=== PATIENT | male | born 1960 | race Caucasian/White ===

== ENCOUNTER 2021-07-28 07:13 | Day surgery (SDC) | payer OTHER, SELFPAY ==
--- NOTE | 2021-07-27 11:04 | HO.ANESPROP2 ---
Documented by User: Cher oWo NP 07/27/21 11:04 HPI - Anesthesia Eval Consult details Narrative: 60yo M for Colonoscopy [facility] Past Medical History Medical History (Updated 07/27/21 @ 10:21 by Vita Valles) Hypercholesteremia Hypertension Obstructive sleep apnea Type 2 diabetes mellitus Surgical History Surgical History (Updated 07/28/21 @ 07:52 by Meg Mayorga, RN) History of penile implant History of repair of anterior cruciate ligament of left knee History of tonsillectomy History of total left knee replacement History of total right knee replacement Social History Social History Tobacco use type: Cigarette Advance Directives: No Advance Directives Information Provided: Yes Meds Allergies Allergy/AdvReac Type Severity Reaction Status Date / Time PCN Allergy Unknown hives Uncoded 01/23/18 00:00 Home Medications Medication Instructions Recorded Confirmed Last Taken Type atorvastatin 20 mg tablet 1 tab PO ONCE 07/27/21 07/27/21 Unknown History glipizide 5 mg tablet 1 tab PO BID 07/27/21 07/27/21 Unknown History hydrochlorothiazide 25 mg tablet 1 tab PO BID 07/27/21 07/27/21 Unknown History lisinopril 20 mg tablet 1 tab PO DAILY 07/27/21 07/27/21 07/28/21 History metformin 500 mg tablet 2 tab PO 07/27/21 07/27/21 Unknown History metoprolol succinate 100 mg 1 tab PO DAILY 07/27/21 07/27/21 07/28/21 History tablet,extended release 24 hr Exam Exam Date and Time: July 27, 2021 1104 Assessment and Plan Assessment Anesthesia Assessment: Chart Reviewed Documented by User: Phuong Orlando MD 07/28/21 08:57 [facility] Active Problems Active Problems: Obesity Past Medical History Medical History (Updated 07/27/21 @ 10:21 by Vita Valles) Hypercholesteremia Hypertension Obstructive sleep apnea Type 2 diabetes mellitus Family History Family history of problems with anesthesia: No Surgical History Surgical History (Updated 07/28/21 @ 07:52 by Meg Mayorga RN) History of penile implant History of repair of anterior cruciate ligament of left knee History of tonsillectomy History of total left knee replacement History of total right knee replacement History of Problems with Anesthesia: No Social History Social History Tobacco use type: Cigarette Advance Directives: No Advance Directives Information Provided: Yes Meds Allergies Allergy/AdvReac Type Severity Reaction Status Date / Time PCN Allergy Unknown hives Uncoded 01/23/18 00:00 Home Medications Medication Instructions Recorded Confirmed Last Taken Type atorvastatin 20 mg tablet 1 tab PO ONCE 07/27/21 07/27/21 Unknown History glipizide 5 mg tablet 1 tab PO BID 07/27/21 07/27/21 Unknown History hydrochlorothiazide 25 mg tablet 1 tab PO BID 07/27/21 07/27/21 Unknown History lisinopril 20 mg tablet 1 tab PO DAILY 07/27/21 07/27/21 07/28/21 History metformin 500 mg tablet 2 tab PO 07/27/21 07/27/21 Unknown History metoprolol succinate 100 mg 1 tab PO DAILY 07/27/21 07/27/21 07/28/21 History tablet,extended release 24 hr Exam Height,Weight and Vital Signs: Height 6 ft 2 in Weight 146.964 kg Vital Signs Temp Pulse Resp BP Pulse Ox 97 F 54 18 119/71 96 07/28/21 07:33 07/28/21 07:33 07/28/21 07:33 07/28/21 07:33 07/28/21 07:33 Airway Mallampati Class: II TM Dist: >3cm Neck ROM: Full Loose/Missing/Broken Teeth: Yes (Dental extractions) Heart: RRR Lungs: CTAB Assessment and Plan Assessment Anesthesia Assessment: Anesthesia Plan Discussed Final Anesthetic Review Family History of Problems with Anesthesia: No History of Problems with Anesthesia: No NPO: Yes ASA Class: III Final Preanesthetic Review: No Changes in Pt Med Stat, Meds/Allgs Chart Reviewed, Consent Obtained/Reviewed and Anes Risks/Benef Reviewed Patient Risk: Intermediate Procedure Risk: Low Assessment/Block/Sedation in SS: Assess/Block/Sedation-SS Anesthetic Plan Anesthetic Plan: MAC: Disposition: Standard PACU
[2021-07-28 07:33] VITALS: BP 119/71; PULSE 54; RESP 18; TEMP 36.1; O2SAT 96; BMI 41.5
[2021-07-28] MEDS: Lactated Ringers 1,000 ML 100 ML IVCONT (07:49)
[2021-07-28 07:55] LABS: Glucose, Whole Blood 104 mg/dL (60-115)
--- NOTE | 2021-07-28 08:04 | MHC.SHP ---
Pre-Procedural Eval Section A Date of Service: 07/28/21 Section B Chief Complaint: screening,hx of malignant neoplasm Details of Present Illness: see H&P no changes Relevant Family History (Specify if Yes): No Relevant Social History: None Present Medications: see Short Stay Collaborative assessment Medical History: No relevant PMH History of Previous Operations: No relevant previous surgery Allergies: Allergies Allergy/AdvReac Type Severity Reaction Status Date / Time PCN Allergy Unknown hives Uncoded 01/23/18 00:00 Review of Systems Sugical H&P ROS: Negative: Constitution, Cardiovascular, Respiratory, Neurological, Psychiatric, Hem-Onc, Allergic/Immunologic, Gastrointestinal, Genitourinary, Musculoskeletal, Integumentary, Endocrine and Eyes/Ears/Nose/Throat Exam Surgical H&P Exam: Normal: HEENT, Normal: Heart, Normal: Lungs, Normal: Extremities, Normal: Abdomen, Normal: Skin and Normal: Neurological Plan I have reviewed the history and physical and performed a pertinent physical examination on my patient. No changes have occurred unless specified.
--- NOTE | 2021-07-28 08:47 | P.BOP_ITS ---
Brief Operative Note Date of Service: 07/28/21 Pre-op diagnosis: screening Post-op diagnosis: same Procedure: colonoscopy Surgeon: Eloy Pena Anesthesia: MAC Was an Cash Posting Specialist used for this Procedure?: No Estimated blood loss (mL): 0 Pathology: none sent Condition: stable Disposition: PACU
[2021-07-28 08:54] VITALS: BP 108/54; PULSE 64; RESP 16; TEMP 36.4; O2SAT 94
[2021-07-28 09:09] VITALS: BP 120/69; PULSE 56; RESP 16; TEMP 36.4; O2SAT 97
--- NOTE | 2021-07-28 09:41 | OP_ITS ---
SURGEON: Eloy Pena MD INDICATIONS: Colon cancer screening and family history of colon cancer. PREOPERATIVE DIAGNOSIS: POSTOPERATIVE DIAGNOSIS: PROCEDURE PERFORMED: Colonoscopy to the terminal ileum. ESTIMATED BLOOD LOSS: COMPLICATIONS: ANESTHESIA: Medications, monitored anesthesia care. ASSISTANTS: SPECIMENS: DESCRIPTION OF PROCEDURE: A history and physical was performed. The risks and benefits of the procedure were explained to the patient. Informed consent was obtained. The patient was placed in the left lateral decubitus position. A digital rectal exam was performed and was found to be normal. The Olympus pediatric video colonoscope was introduced into the rectum and advanced to the cecum without difficulty. The cecum was identified by transillumination, palpation, and identification of the ileocecal valve. Examination was performed, and the scope was removed. He tolerated the procedure well, returned to the recovery area in stable condition. FINDINGS: The terminal ileum was briefly examined and appeared normal. The visualized colonic mucosa was normal. The quality of the prep was good. There was mild sigmoid diverticulosis. Retroflexed examination was normal. IMPRESSION: Normal colonoscopy. RECOMMENDATION: 1. Follow up as needed. 2. Repeat colonoscopy is recommended in 5 years because of family history. MD RYAN Pulido/MARY / [id number]
== END 2021-07-28 09:10 | disposition home or self-care (01) ==
PROVIDERS: PCP Internal Medicine; Visit Provider Internal Medicine Gastroenterology
PROC: 0DJD8ZZ Inspection of Lower Intestinal Tract, Via Natural or Artificial Opening Endoscopic (ICD-10-PCS; CPT 45378; principal; 2021-07-28 08:20)
DX: Z12.11 Encounter for screening for malignant neoplasm of colon (principal); Z80.0 Family history of malignant neoplasm of digestive organs; K57.30 Diverticulosis of large intestine without perforation or abscess without bleeding; K59.4 Anal spasm; E78.00 Pure hypercholesterolemia, unspecified; I10 Essential (primary) hypertension; G47.33 Obstructive sleep apnea (adult) (pediatric); E11.9 Type 2 diabetes mellitus without complications; Z79.84 Long term (current) use of oral hypoglycemic drugs; Z79.899 Other long term (current) drug therapy; Z88.0 Allergy status to penicillin; Z96.653 Presence of artificial knee joint, bilateral
CPT/HCPCS: G0105; 82947

== ENCOUNTER 2022-09-29 08:08 | Outpatient (REF) | payer OTHER, SELFPAY ==
--- NOTE | ~2022-09-29 | US_ITS ---
EXAMINATION: US THYROID CLINICAL INFORMATION: Thyroid nodules. COMPARISON: None available. TECHNIQUE: Linear transducer grayscale and color Doppler examination with attention to the region of the thyroid. FINDINGS: SIZE: Measurements of the thyroid lobes and nodules are given in sagittal, anteroposterior and transverse dimensions respectively. Right Thyroid Lobe: 4.4 x 1.8 x 2.0 cm, volume 8.0 mL. Parenchyma: The gland echotexture is homogeneous. Thyroid vascularity is normal. Left Thyroid Lobe: 4.9 x 1.5 x 2.0 cm, volume 7.6 mL. Parenchyma: The gland echotexture is homogeneous. Thyroid vascularity is normal. Isthmus: 0.5 cm in maximum AP dimension. No focal thyroid nodule is seen. NODES: No lymphadenopathy is seen in the tissue surrounding the thyroid gland. US/US thyroid IMPRESSION: Unremarkable thyroid ultrasound. ACR TI-RADS RECOMMENDATION REFERENCE: Ultrasound-guided fine-needle aspiration, followup ultrasound, no further follow up. * TR1 (0 point) and TR2 (2 points): No FNA or follow up. * TR3 (3 points): FNA if more than or equal to 2.5 cm in maximum dimension, followup ultrasound in 1, 3 and 5 years if 1.5 to 2.4 cm in maximum dimension. * TR4 (4-6 points): FNA if more than or equal to 1.5 cm in maximum dimension, followup ultrasound in 1, 2, 3 and 5 years if 1 to 1.4 cm in maximum dimension. * TR5 (more than or equal to 7 points): FNA if more than or equal to 1 cm in maximum dimension, followup ultrasound every year for 5 years if 0.5 to 0.9 cm in maximum dimension. * TR3, TR4 or TR5 nodules that are below the size threshold for followup receive no follow up.
== END 2022-09-29 08:09 | disposition home or self-care (01) ==
LOC: HO.US 08:08
PROVIDERS: PCP Internal Medicine; Visit Provider Internal Medicine
DX: E04.1 Nontoxic single thyroid nodule (principal)
CPT/HCPCS: 76536

== ENCOUNTER 2023-03-11 08:15 | Outpatient (REF) | payer OTHER, SELFPAY ==
[2023-03-11 14:21] LABS: MANUAL DIFF FLAG NO
[2023-03-11 14:25] LABS: Basophils Absolute Auto 0.2 X10*3/uL (0.0-0.2); Basophils Percent Auto 1.4 % (0-2); Eosinophils Absolute Auto 0.5 X10*3/uL (0.0-0.4); Eosinophils Percent Auto 4.6 % (0-4); Hematocrit 41.4 % (42.0-52.0); Hemoglobin 13.5 g/dl (14.0-18.0); Imm Gran Abs Auto 0.06 X10*3/uL (0.00-0.03); Imm Gran Pct Auto 0.5 % (0.0-0.4); Lymphocytes Absolute Auto 2.4 X10*3/uL (1.2-4.9); Lymphocytes Percent Auto 21.7 % (20-40); Mean Corpuscular HGB Conc 32.6 g/dl (31.0-36.0); Mean Corpuscular Hemoglobin 30.1 pg (27.0-33.0); Mean Corpuscular Volume 92.2 fL (80.0-98.0); Mean Platelet Volume 11.4 fL (9.4-12.4); Monocytes Absolute Auto 0.8 X10*3/uL (0.1-1.2); Monocytes Percent Auto 7.2 % (2-11); Neutrophils Percent Auto 64.6 % (45-73); Platelet Count 289 X10*3/uL (160-400); Red Blood Count 4.49 X10*6/uL (4.60-5.80); Red Cell Distribution Width 13.7 % (11.0-16.0); White Blood Count 10.9 X10*3/uL (4.8-10.8)
[2023-03-11 14:40] LABS: Alanine Aminotransferase 34 U/L (0-40); Albumin Level 4.4 g/dL (3.5-5.0); Alkaline Phosphatase 64 U/L (39-117); Anion Gap 20 (12-20); Aspartate Amino Transferase 27 U/L (5-37); Blood Urea Nitrogen 31 mg/dL (9-16); Carbon Dioxide 26 mmol/L (22-29); Chloride 99 mmol/L (96-108); Cholesterol 122 mg/dL (<200); Estimated Glomerular Filt Rate 45; Glucose Fasting 100 mg/dL (60-99); HDL Cholesterol 32 mg/dL (>40); LDL Cholesterol Calculated 61 mg/dL (<100); Potassium 3.7 mmol/L (3.3-5.1); Sodium 141 mmol/L (135-145); Total Protein 7.6 g/dL (6.5-8.0); Triglycerides 145 mg/dL (<150)
[2023-03-11 15:31] LABS: Estimated Average Glucose 108 mg/dL; Hemoglobin A1c % 5.4 % (<6.0)
== END 2023-03-11 08:16 | disposition home or self-care (01) ==
LOC: HO.CHCLDS 08:15
PROVIDERS: Visit Provider Internal Medicine
DX: E11.9 Type 2 diabetes mellitus without complications (principal)
CPT/HCPCS: 36415; 80053; 80061; 83036; 85025

== ENCOUNTER 2023-03-14 09:12 | Outpatient (REF) | payer OTHER, SELFPAY ==
[2023-03-14 15:14] LABS: Creatinine Urine 122.46 mg/dL; Microalbumin Urine < 5.0 mg/L
== END 2023-03-14 09:13 | disposition home or self-care (01) ==
LOC: HO.CHCLDS 09:12
PROVIDERS: Visit Provider Internal Medicine
DX: E11.9 Type 2 diabetes mellitus without complications (principal)
CPT/HCPCS: 82043; 82570

== ENCOUNTER 2023-03-25 08:22 | Outpatient (REF) | payer OTHER, SELFPAY ==
[2023-03-25 09:50] LABS: Anion Gap 16 (12-20); Blood Urea Nitrogen 18 mg/dL (9-16); Calcium 9.7 mg/dL (8.4-10.2); Carbon Dioxide 23 mmol/L (22-29); Chloride 109 mmol/L (96-108); Estimated Glomerular Filt Rate > 60; Glucose Fasting 95 mg/dL (60-99); Iron 56 mcg/dL (45-160); Percent Iron Saturation 25 % (15-50); Potassium 4.7 mmol/L (3.3-5.1); Sodium 143 mmol/L (135-145); Total Iron Binding Capacity 225 mcg/dL (228-428); Unsaturated Iron Binding 169 ug/dL
[2023-03-25 10:02] LABS: Vitamin D 25-OH Total 35.3 ng/mL (>30)
[2023-03-28 13:29] LABS: Calcium (PTHI) 9.2 mg/dL (8.6-10.3); PTHI 54 pg/mL (16-77)
[2023-03-29 12:49] LABS: VITAMIN D (1,25 OH) D3 37 pg/mL; Vit D (1,25-Dihydroxy) Total 37 pg/mL (18-72); Vitamin D (1,25 OH) D2 <8 pg/mL
[2023-04-01 18:09] LABS: Parathyroid Hormone Related Pr 15 pg/mL (11-20)
== END 2023-03-25 08:23 | disposition home or self-care (01) ==
LOC: HO.CHCLDS 08:22
PROVIDERS: Visit Provider Internal Medicine
DX: E83.52 Hypercalcemia (principal); D64.9 Anemia, unspecified; R79.89 Other specified abnormal findings of blood chemistry; E11.69 Type 2 diabetes mellitus with other specified complication; R60.0 Localized edema; Z96.60 Presence of unspecified orthopedic joint implant
CPT/HCPCS: 36415; 80048; 82306; 82652; 83519; 83540; 83970

== ENCOUNTER 2023-05-23 10:07 | Outpatient (REF) | payer OTHER, SELFPAY ==
[2023-05-23 14:56] LABS: Prostate Specific Antigen 1.14 ng/mL (<0.05-4.0)
== END 2023-05-23 10:08 | disposition home or self-care (01) ==
LOC: HO.CHCLDS 10:07
PROVIDERS: Visit Provider Internal Medicine
DX: R35.1 Nocturia (principal); Z12.5 Encounter for screening for malignant neoplasm of prostate
CPT/HCPCS: 36415; 84153

== ENCOUNTER 2023-05-24 08:09 | Outpatient (REF) | payer OTHER, SELFPAY | END 2023-05-24 08:10 | disposition home or self-care (01) | LOC: HO.CHCLNP 08:09 | PROVIDERS: Visit Provider Internal Medicine | DX: R14.0 Abdominal distension (gaseous) (principal) | CPT/HCPCS: 87338 ==

== ENCOUNTER 2023-06-21 08:14 | Outpatient (AMB) | payer OTHER, SELFPAY ==
--- NOTE | 2023-06-21 08:25 | A.OFFVIS_ITS ---
Intake Vital Signs 06/21/23 08:26 Height 6 ft 3 in Weight 313 lb 0.902 oz BMI 39.1 BP 136/80 Blood Pressure Location Lt brachial Position Sitting Pulse 54 Intake Visit Reasons: NPV/BLE edema/HHC/Cole English Intake Note: NPV w/ EKG Aligning Inspector Required: No Accompanied by: Self / Same As Patient Allergies PCN Allergy (Unknown, Uncoded 06/21/23 08:26) hives Medication List - Last Reconciled 06/21/23 by Vidal Damico MD albuterol sulfate 90 mcg/actuation (Ventolin HFA) 2 inhalations inhalation DAILY atorvastatin 20 mg PO ONCE glipizide 5 mg PO BID lisinopril 40 mg PO DAILY metformin 1,000 mg PO BID metoprolol succinate ER 100 mg PO DAILY HPI HPI Comments History of Present Illness Details Michael is here for consultation regarding leg swelling and shortness of breath. He does not have any history of cardiac issues. No history of any coronary disease or myocardial infarction or cardiomyopathy or in fact any other cardiac concerns in the past. Multiple risk factors including obesity, diabete s, hypertension, dyslipidemia. He states he was diagnosed with SOPHY but does not seem to be on CPAP. He states that over the last few months, he has been noticing shortness of breath with activity. Twinges of momentary pain lasting for couple seconds in the left axillary region. He also gets some swelling in his ankle area/feet. Hence referred for further evaluation. [facility] Medical History (Updated 06/21/23 @ 08:42 by Vidal Damico MD) Obstructive sleep apnea Hypercholesteremia Hypertension Type 2 diabetes mellitus Surgical History History of penile implant History of tonsillectomy History of total right knee replacement History of total left knee replacement History of repair of anterior cruciate ligament of left knee Family History (Updated 06/21/23 @ 08:29 by Margaret Garner) Mother No problems noted. Father No problems noted. Social History (Updated 06/21/23 @ 08:29 by Margaret Garner) Alcohol intake: former Year quit: 2022 Patient Tobacco Use Status: Former Tobacco user Quit Date: 2022 Tobacco use type: Cigarette Review of Systems Const All systems reviewed & are unremarkable except as noted in HPI and below Reports as per HPI and Reports no additional complaints Eyes Reports as per HPI and Denies no additional complaints ENT Denies no additional complaints and Reports as per HPI Card Reports as per HPI, Reports no additional complaints, Denies acrocyanosis, Denies chest pain, Denies leg edema, Denies lightheadedness, Denies palpitations and Denies dyspnea Resp Reports as per HPI, Denies no additional complaints and Denies dyspnea GI Reports as per HPI and Denies no additional complaints Reports no additional complaints and Reports as per HPI Musc Reports no additional complaints and Reports as per HPI Skin/Breast Reports system reviewed and no additional complaints, except as documented Neuro Reports no additional complaints and Reports as per HPI Psych Reports no additional complaints and Reports as per HPI Endo Reports no additional complaints, Reports as per HPI and Denies palpitations Jcarlos/Lymph Reports no additional complaints and Reports as per HPI Aller/Immun Reports no additional complaints and Reports as per HPI Physical Exam Vital Signs: Last Vital Signs Pulse 54 06/21/23 08:26 BP 136/80 06/21/23 08:26 BMI result Body Mass Index 39.1 Const General: comfortable and no acute distress Orientation/consciousness: patient oriented x3 HEENT Other: Unremarkable Head: Yes normal to inspection Neck Neck: Yes normal visual inspection Chest Chest palpation & inspection: normal inspection of the chest Resp Auscultation: clear to auscultation bilaterally Cardio Palpation: normal PMI Heart sounds: S1 normal heart sound present, S2 normal heart sound present, no gallops, no murmurs and no rubs GI Palpation (GI): Soft to palpation Back/Spine/Pelvis Other: unremarkable Skin General skin exam: no rashes or lesions noted Neuro General: patient oriented x3 Extrem General: Yes normal to inspection Psych Mental Status: mental status grossly normal Office Procedures EKG Details: EKG with sinus bradycardia 54/Min; no significant ST-T changes and otherwise [place]remark[place] [id number], Complete Assessment & Plan Assessment & Plan (1) Leg swelling: Code(s): M79.89 - Other specified soft tissue disorders (2) SOB (shortness of breath): Code(s): R06.02 - Shortness of breath Plan Shortness of breath, leg swelling, multiple risk factors including SOPHY. We will plan on getting an echocardiogram and coronary CTA for further evaluation. Labs including cardiac BNP. Once these are completed and reviewed, we can see him back in follow-up and plan further care. Orders: Orders CA echo transthoracic complete Today M79.89 - Other specified soft tissue disorders, R06.02 - Shortness of breath CT Cardiac Coronary Angio Today I25.10 - Atherosclerotic heart disease of [place] coronary artery without angina pectoris Basic Metabolic Panel Today R06.02 - Shortness of breath B Type Natriuretic Peptide Today R06.02 - Shortness of breath Coding Level of Care Code New Pt Level 4 (47936) Diagnoses Leg swelling M79.89 SOB (shortness of breath) R06.02 CPT Codes EKG - CPT: 90097-[id number], Complete ([id number])
[2023-06-21 08:26] VITALS: BP 136/80; PULSE 54; BMI 39.1
== END 2023-06-21 08:57 | disposition home or self-care (01) ==
PROVIDERS: PCP Internal Medicine; Visit Provider Internal Medicine
DX: M79.89 Other specified soft tissue disorders (principal); R06.02 Shortness of breath
CPT/HCPCS: 93010; 99204

== ENCOUNTER → 2023-06-21 08:14 | Outpatient (BNVA) | payer OTHER, SELFPAY | PROVIDERS: PCP Internal Medicine; Visit Provider Internal Medicine | DX: M79.89 Other specified soft tissue disorders (principal); R06.02 Shortness of breath | CPT/HCPCS: 93005; 99202 ==

== ENCOUNTER → 2023-07-13 07:48 | Outpatient (REF) | payer OTHER, SELFPAY ==
--- NOTE | 2023-07-13 07:54 | CA_ITS ---
Transthoracic Echocardiogram Patient (Last, First, Middle): Michael Verde, Gender: Male Date of : 1960 Age: 62 Procedure Date: 07/13/2023 Procedure Type: Transthoracic Echocardiogram Location: OP Height: 190.5 cm Weight: 131.54 kg BSA: 2.57 m2 Heart Rate: bpm BP: 110 / 70 mmHg Human Development Professor: TO Referring MD: Vidal Damico MD [id number] Android Developer: Nando Jenkins MD Symptoms: M79.89 - Other specified soft tissue disorders Study Quality: Adequate/contrast ECG Rhythm: Sinus Conclusions: - 1. Normal LV ejection fraction at 60 65% with mild LVH and pseudonormal filling pattern 2. Normal cardiac valvular Dopplers 3. Mildly dilated ascending aorta at 3.9 cm 4. No gross pericardial effusion Findings Procedure Information Contrast agent, definity, is being given per protocol without apparent complications. Left Ventricle Normal left ventricular size and systolic function. There is mildly increased left ventricular wall thickness. The visually estimated ejection fraction is between 60-65%. Spectral Doppler is indicative of a pseudonormal filling pattern. E/E prime ratio is between 8 and 15 consistent with indeterminate filling pressures. Peak GLS is -19.5%, within normal limits. Right Ventricle Normal right ventricular cavity size and systolic function. Atria The left atrium is likely dilated. There is no evidence of interatrial shunt. The right atrium is normal in size. Aortic Valve Normal aortic valve structure and function. There is no aortic valve stenosis. There is no aortic valve regurgitation. Mitral Valve Normal mitral valve structure and function. There is trace mitral valve regurgitation. There is no mitral valve stenosis. Pulmonic Valve The pulmonic valve is likely normal. Tricuspid Valve Normal tricuspid valve structure. There is trace tricuspid valve regurgitation. The right ventricular systolic pressure is normal. The right ventricular systolic pressure is 23 mmHg. Normal right atrial pressure. There is no evidence of pulmonary hypertension. Great Vessels The pulmonary artery was not well visualized. There is mild dilatation of the ascending aorta measuring 3.90 cm. Venous The inferior vena cava is normal in size and collapses greater than 50% with inspiration. Pericardium/Pleural There is no evidence of pericardial effusion. Prior Study Comparison No prior study available for comparison. delay in reporting due to technical issues Measurements 2D Linear Measurements IVSd: 1.20 0.6-0.9/0.6-1.0 cm LVIDd: 4.62 3.9-5.3/4.2-5.9 cm LVIDd Index: 1.80 2.4-3.2/2.2-3.1 cm/m2 LVIDs: 3.17 2.0-3.6 cm LVPWd: 1.23 0.7-1.1 cm LA Diam: 4.10 2.7-3.8/3.0-4.0 cm LAIDs Index: 1.60 1.5-2.3 cm/m2 LV Mass: 266.54 67-162/88-224 g LV Mass Index: 103.71 43-95/49-115 g/m2 LVOT Diam: 2.40 3.0+(-)1.3 cm 2D Systolic Function EF 4C: 61.90 >55% EF 2C: 60.90 >55% EF BiP: 62.00 >55% Mitral Valve MV Pk E: 0.78 MV PK A: 0.68 MV Decel Time: 391.00 E/A: 1.10 E'Lateral: 6.20 E'Medial: 5.55 E/E' Med: 14.10 E/E' Lat: 12.60 PHT: 114.00 MVA PHT: 1.93 Decel Todd: 2.00 Aortic Valve AoV Pk Sanjeev: 1.45 AoV Mn Sanjeev: 0.99 AoV VTI: 0.36 AoV Pk Grad: 8.00 Aov Mn Grad: 4.00 MIR Cont.VTI: 3.67 LVOT LVOT Pk Sanjeev: 1.07 LVOT Mn Sanjeev: 0.72 LVOT VTI: 0.29 LVOT Pk Grad: 5.00 LVOT Mn Grad: 2.00 LVOT Diam: 2.40 LVOT Area: 4.52 Diastolic Function MV Pk E: 0.78 MV Pk A: 0.68 E/A: 1.10 E'Medial: 5.55 E/E' Med: 14.10 E' Laterial: 6.20 E/E' Lat: 12.60 Right Ventricle TAPSE (mm): 25.40 TVS' Sanjeev: 14.00 Tricuspid Valve TR Pk Sanjeev: 1.95 TR Pk Grad: 15.00 RA Press: 8.00 RVSP: 23.00 Great Vessels Aorta Sinus of Valsalva: 3.69 2.0-3.[address] [place]: 2.83 1.7-3.4 cm Ao Asc: 3.90 2.1-3.4 cm Updated in Other Vendor System with Status of Final Nando Jenkins MD electronically signed on 07/15/2023 12:35:15 PM with status of Final
== END ==
LOC: HO.CARD 07:48
PROVIDERS: PCP Internal Medicine; Visit Provider Internal Medicine
DX: R06.02 Shortness of breath (principal); R60.0 Localized edema
CPT/HCPCS: 93306; 93356; Q9957

== ENCOUNTER → 2023-07-13 07:54 | Outpatient (BNV) | payer OTHER, SELFPAY | PROVIDERS: PCP Internal Medicine; Visit Provider Internal Medicine Cardiovascular Disease | DX: R60.0 Localized edema (principal); M79.89 Other specified soft tissue disorders | CPT/HCPCS: 93306 ==

== ENCOUNTER 2023-10-03 08:02 | Outpatient (AMB) | payer OTHER, SELFPAY ==
[2023-10-03 08:24] VITALS: BP 134/80; PULSE 53; BMI 38.6
--- NOTE | 2023-10-03 08:24 | A.OFFVIS_ITS ---
Vital Signs 10/03/23 08:24 Height 6 ft 3 in Weight 309 lb 1.409 oz BMI 38.6 BP 134/80 Blood Pressure Location Lt brachial Position Sitting Pulse 53 Pulse Source Pulse Oximeter Intake Visit Reasons: f/up cta/ echo Sort Worker Required: No Allergies PCN Allergy (Unknown, Uncoded 10/03/23 08:27) hives Medication List - Last Reconciled 10/03/23 by Cristal Patel NP-C atorvastatin 20 mg PO ONCE lisinopril 40 mg PO DAILY metformin 1,000 mg PO BID metoprolol succinate ER 100 mg PO DAILY HPI HPI f/up cta/ echo: Details: Michael is a 62-year-old male with past medical history of obesity, hypertension, hyperlipidemia, diabetes, obstructive sleep apnea without CPAP use who was recently evaluated for shortness of breath and leg edema. He underwent an echocardiogram and CTA of the coronary arteries and now presents for follow-up. Today he states that his breathing has been better overall. He noticed it mostly with physical activity and when laying down at night. He does have sleep apnea and tried to use a CPAP mask but was unable to tolerate it. His leg edema has improved. He tells me he did lose 80 lb then as recently gained back 15lbs. His activity is limited by foot pain from his neuropathy and arthritis. He ambulates with a crutch. No shortness of breath at rest. No chest discomfort at rest or with activity. No heart palpitations, lightheadedness, presyncope, syncope, falls. Takes his meds as directed. [facility] Medical History (Updated 10/03/23 @ 09:16 by EMMA Johnston) Obstructive sleep apnea Hypercholesteremia Hypertension Type 2 diabetes mellitus Surgical History History of penile implant History of tonsillectomy History of total right knee replacement History of total left knee replacement History of repair of anterior cruciate ligament of left knee Family History Mother No problems noted. Father No problems noted. Social History Alcohol intake: former Year quit: 2022 Patient Tobacco Use Status: Former Tobacco user Quit Date: 2022 Tobacco use type: Cigarette Review of Systems Const All systems reviewed & are unremarkable except as noted in HPI and below ENT Denies dizziness Card Denies chest pain, Denies chest pain at rest, Denies chest pain with activity, Denies rapid heart rate, Denies pedal edema, Denies edema, Denies leg edema, Denies lightheadedness, Denies palpitations, Denies dyspnea, Reports dyspnea on exertion and Denies orthopnea Resp Denies cough, Denies dyspnea and Reports dyspnea on exertion GI Denies hematochezia and Denies change in stool character Musc Denies abnormal gait, Denies limited range of motion, Denies muscle cramps, Denies muscle weakness, Denies numbness, Denies radiating pain into limb, Denies stiffness and Denies tingling Neuro Denies abnormal gait, Denies dizziness, Denies numbness and Denies tingling Endo Denies palpitations Physical Exam Vital Signs: Last Vital Signs Pulse 53 10/03/23 08:24 BP 134/80 10/03/23 08:24 BMI result Body Mass Index 38.6 Const General: cooperative, healthy appearing, comfortable and no acute distress Orientation/consciousness: patient oriented x3 Neck Neck: Yes normal visual inspection and Yes no JVD Resp Effort & Inspection: normal respiratory effort Auscultation: clear to auscultation bilaterally, no rales, no rhonchi and no wheezes Cardio Jugular venous distension: no JVD Rate: regular rate Rhythm: regular rhythm Heart sounds: S1 normal heart sound present, S2 normal heart sound present, no murmurs and no rubs Neuro General: patient oriented x3 Extrem General: Yes normal to inspection, No no pedal edema and No calf tenderness Psych Appearance: grossly normal Mental Status: mental status grossly normal Speech and movement: Normal speech and movement present Assessment & Plan Assessment & Plan (1) SOB (shortness of breath): Code(s): R06.02 - Shortness of breath Category: Medical Plan: Report of shortness of breath with activity and with laying down. He does not appear fluid overloaded on examination. Leg edema has resolved since last visit. Echocardiogram done 07/13/2023 showed EF 60-65%, mild LVH, normal valves, dilated ascending aorta 3.9 cm. A CTA of the coronary arteries was done on 09/28/2023 showing proximal LAD less than 25% stenosis, mid left circumflex less than 25% stenosis, ramus less than 50% stenosis, RCA less than 25% stenosis, small hiatal hernia. Test results reviewed with him in detail. No clear cardiac reason for his shortness of breath and leg edema. He does have known o bstructive sleep apnea and is intolerant to CPAP. Has obesity and is sedentary which contributes to his symptoms. Benefits of weight loss reviewed with him. Increase physical activity as tolerated. Compression stocking can be used for leg edema as needed. (2) Leg swelling: Code(s): M79.89 - Other specified soft tissue disorders Category: Medical Plan: As above (3) Coronary atherosclerosis: Comment: CTA of the coronary arteries 09/27/2022, proximal LAD less than 25% stenosis, mid left circumflex less than 25% stenosis, ramus less than 50% stenosis, RCA less than 25% stenosis Code(s): I25.10 - Atherosclerotic heart disease of [place] coronary artery without angina pectoris Category: Medical Plan: New diagnosis of nonobstructive coronary artery disease based on CTA of coronary arteries. Cardiac risk factor modification reviewed with him. Will have him start on aspirin 81 mg daily. Continue atorvastatin for good cholesterol control. Continue metoprolol and lisinopril for blood pressure control. (4) Hypertension: Code(s): I10 - Essential (primary) hypertension Category: Medical Plan: [place] blood pressure goal less than 130/85. Blood pressure today 134/80. Tells me his lisinopril was recently increased by his PCP. He is upcoming PCP follow- up in 3 weeks. Low-salt diet reviewed. (5) Type 2 diabetes mellitus: Code(s): E11.9 - Type 2 diabetes mellitus without complications Category: Medical Plan: Hemoglobin A1c goal less than 7. Followed by PCP. (6) Hypercholesteremia: Code(s): E78.00 - Pure hypercholesterolemia, unspecified Category: Medical Plan: [place] LDL goal less than 70. Labs done 03/11/2023 showed LDL 61, AST 27, ALT 34. Continue atorvastatin 20 mg daily. (7) Obstructive sleep apnea: Comment: Not requiring CPAP since tonsillectomy Code(s): G47.33 - Obstructive sleep apnea (adult) (pediatric) Category: Medical Plan: Patient states he has recently tried use of CPAP and is intolerant. He sleeps on his side to help limit SOPHY. Further weight loss would be beneficial as well. Plan Time spent on chart review, documentation, interview and assessment Medications: New aspirin (Adult Low Dose Aspirin) 81 mg PO DAILY 90 tabs 3RF
== END 2023-10-03 08:59 | disposition home or self-care (01) ==
PROVIDERS: PCP Internal Medicine; Visit Provider Nurse Practitioner Family
DX: R06.02 Shortness of breath (principal); M79.89 Other specified soft tissue disorders; I25.10 Atherosclerotic heart disease of native coronary artery without angina pectoris; I10 Essential (primary) hypertension; E11.9 Type 2 diabetes mellitus without complications; E78.00 Pure hypercholesterolemia, unspecified; G47.33 Obstructive sleep apnea (adult) (pediatric)
CPT/HCPCS: 99214

== ENCOUNTER → 2023-10-03 08:02 | Outpatient (BNVA) | payer OTHER, SELFPAY | PROVIDERS: PCP Internal Medicine; Visit Provider Nurse Practitioner Family | DX: R06.02 Shortness of breath (principal); M79.89 Other specified soft tissue disorders; I25.10 Atherosclerotic heart disease of native coronary artery without angina pectoris; I10 Essential (primary) hypertension; E11.9 Type 2 diabetes mellitus without complications; E78.00 Pure hypercholesterolemia, unspecified; G47.33 Obstructive sleep apnea (adult) (pediatric) | CPT/HCPCS: 99212 ==

== ENCOUNTER 2023-10-06 13:00 | Emergency (ER) | payer OTHER, SELFPAY ==
--- NOTE | ~2023-10-06 | XR_ITS ---
EXAMINATION: XR FOOT, RIGHT CLINICAL INFORMATION: Diabetic foot infection COMPARISON: None available. TECHNIQUE: AP, lateral, and oblique views of the right foot. FINDINGS: There is soft tissue swelling and ulceration overlying the heel but no underlying radiopaque foreign body. There is a prominent spur off the posterior calcaneus at the insertion of the Achilles tendon and prominent spurring at the insertion of the plantar fascia. Chronic appearing deformity to the fifth PIP joint. No acute fracture or dislocation or destructive process. XR/XR foot RT min 3V IMPRESSION: Soft tissue swelling and ulceration about the heel but no underlying acute osseous abnormality.
[2023-10-06 13:18] VITALS: BP 151/75; PULSE 61; RESP 16; TEMP 36.2; O2SAT 95; BMI 166.7
--- NOTE | 2023-10-06 13:19 | ED.GENADULT ---
HPI - General Adult General Chief complaint: Extremity Injury, Lower Stated complaint: R Foot Infection Diabetic Time Seen by Provider: 10/06/23 13:51 Source: patient Mode of arrival: ambulatory Limitations: no limitations History of Present Illness HPI narrative: 62-year-old male with history of diabetes, HTN, HLD, CAD, SOPHY, obesity who presents the ER for evaluation of a blister to the back of his right heel. He states a couple of days ago he went hiking and a blister formed. It popped and drained clear liquid. It is now a red open area on the back of his heel where the blister was. No surrounding redness, no further drainage. No fevers. No chills. he does not have any neuropathy from his diabetes. His sugars have been well controlled. He has never had a foot wound or ulcer in the past. MD complaint: Popped blister on the back of the right heel Onset (ago): day(s) Location: right and lower extremity Radiation: non-radiation Severity: mild Severity scale (1-10): 2 Quality: aching Pain Consistency: now resolved Relieving factors: none Exacerbating factors: none Associated symptoms: denies other symptoms Treatments prior to arrival: none Related Data Home Medications ?Medication ?Instructions ?Recorded ?Confirmed atorvastatin 20 mg tablet 20 mg PO ONCE 06/21/23 10/03/23 lisinopril 40 mg tablet 40 mg PO DAILY 06/21/23 10/03/23 metformin 1,000 mg tablet 1,000 mg PO BID 06/21/23 10/03/23 metoprolol succinate 100 mg 100 mg PO DAILY 06/21/23 10/03/23 tablet,extended release 24 hr Previous Rx's ?Medication ?Instructions ?Recorded aspirin 81 mg tablet,delayed 81 mg PO DAILY #90 tabs 10/03/23 release (Adult Low Dose Aspirin) Allergies Allergy/AdvReac Type Severity Reaction Status Date / Time penicillin V Allergy Hives Verified 10/06/23 13:20 Penicillins Allergy Hives Verified 10/06/23 13:20 Review of Systems Review of Systems: Yes all other systems are reviewed and are negative [facility] Past Medical History Medical History (Updated 10/06/23 @ 15:31 by CAMRYN Davies) Obstructive sleep apnea Hypercholesteremia Hypertension Type 2 diabetes mellitus Surgical History History of penile implant History of tonsillectomy History of total right knee replacement History of total left knee replacement History of repair of anterior cruciate ligament of left knee Family History Family History Mother No problems noted. Father No problems noted. Social History Social History Alcohol intake: former Year quit: 2022 Patient Tobacco Use Status: Former Tobacco user Quit Date: 2022 Tobacco use type: Cigarette Advance Directives: No Do you have a plan to hurt others: No Plan Physical Exam ED Vital Signs: Vital Signs - 24 hr 10/06/23 13:18 10/06/23 15:38 Temperature 97.2 F 97.9 F Pulse Rate 61 63 Respiratory Rate 16 20 Blood Pressure 151/75 H 138/86 Pulse Oximetry 95 96 Oxygen Delivery Method Room Air Room Air BMI result Body Mass Index 166.7 Appearance: Alert. Oriented X3. No acute distress. HEENT: normal inspection CVS: Normal heart rate and rhythm. Pulses normal. Respiratory: No respiratory distress. Skin: Skin warm and dry. Normal skin color. Normal skin turgor. No rashes. Extremities: back of the heel on the right side with a 1cm deroofed blister, erythematous base, well circumscribed, no surrounding erythema or drainage. Neuro: Oriented X 3. No motor deficit. No sensory deficit. Course Course Course Narrative: This is a rapid medical exam: Additional HPI, ROS, PE not included below will be deferred to primary provider. Patient is a 62-year-old male with history of T2DM, SOPHY, HTN, hypercholesterolemia, coronary atherosclerosis presenting to the ED with complaint of right foot infection to right heel since last Tuesday. Denies fevers. Drainage but unable to state color. Plan: labs, x-ray Medical Decision Making Medical Decision Making MDM Narrative: 62-year-old male with history of diabetes presents to the ER for evaluation of wound to the back of his right heel sustained after hiking. He had a blister in the area that popped. What is now left is a deroofed blister that is starting to heal. No surrounding cellulitis or evidence of infection. Lab workup today shows a very mild leukocytosis with WBC 67052. Inflammatory markers are negative. X-ray showing only some mild soft tissue swelling. No evidence of osteomyelitis. No evidence of cellulitis. Local wound care appropriate at this time. No role for oral antibiotics. He has an appointment with his PCP in 3 weeks. At this time is stable for discharge home with close following and monitoring of the wound. We discussed at length return precautions and signs and symptoms of infection. Stable for discharge home. Differential Diagnosis Differential Diagnoses: The differential diagnosis associated with the presentation includes popped blister, diabetic foot ulcer, infected wound, cellulitis, osteomyelitis Admission/Observation Consideration of admission/observation: Escalation of care including admission/observation considered Lab Data MDM Lab Attestation statement: I reviewed the patient's lab results. Mild leukocytosis with normal inflammatory markers, normal renal function 10/06/23 13:45 10/06/23 13:45 Labs: Lab Results 10/06/23 Range/Units 13:45 WBC 11.0 H (4.8-10.8) X10*3/uL RBC 4.89 (4.60-5.80) X10*6/uL Hgb 14.8 (14.0-18.0) g/dl Hct 44.7 (42.0-52.0) % MCV 91.4 (80.0-98.0) fL MCH 30.3 (27.0-33.0) pg MCHC 33.1 (31.0-36.0) g/dl RDW 13.6 (11.0-16.0) % Plt Count 258 (160-400) X10*3/uL MPV 10.3 (9.4-12.4) fL Immature Gran % (Auto) 0.5 H (0.0-0.4) % Neut % (Auto) 63.4 (45-73) % Lymph % (Auto) 22.4 (20-40) % Hubbard % (Auto) 6.6 (2-11) % Eos % (Auto) 5.6 H (0-4) % Baso % (Auto) 1.5 (0-2) % Lymph # (Auto) 2.5 (1.2-4.9) X10*3/uL Hubbard # (Auto) 0.7 (0.1-1.2) X10*3/uL Eos # (Auto) 0.6 H (0.0-0.4) X10*3/uL Baso # (Auto) 0.2 (0.0-0.2) X10*3/uL Abs Immat Gran (auto) 0.06 H (0.00-0.03) X10*3/uL Absolute Neuts (auto) 7.0 (2.0-8.3) x10*3/uL Absolute Nucleated RBC 0.000 (0.0-0.012) X10*3/uL Nucleated RBC % (auto) 0.0 (0.0-0.2) /100WBC ESR 10 (0-15) MM/HR Sodium 144 (135-145) mmol/L Potassium 4.1 (3.3-5.1) mmol/L Chloride 107 (96-108) mmol/L Carbon Dioxide 28 (22-29) mmol/L Anion Gap 13 (12-20) BUN 19 H (9-16) mg/dL Creatinine 1.01 (0.5-1.4) mg/dL Estim Creat Clear Calc 56.4 Estimated GFR > 60 Random Glucose 85 (60-115) mg/dL Calcium 9.8 (8.4-10.2) mg/dL Total Bilirubin 0.8 (0.0-1.0) mg/dL AST 22 (5-37) U/L ALT 29 (0-40) U/L Alkaline Phosphatase 79 (39-117) U/L C-Reactive Protein 0.19 (< or = 0.50) mg/dL Total Protein 7.3 (6.5-8.0) g/dL Albumin 4.2 (3.5-5.0) g/dL Independent Interpretation I performed an independent interpretation of an: Plain X-Ray Interpretation: no visible fracture or bony lesion Radiology Impression Discussion of test interpretation with radiology: I have reviewed the radiologist's reading. Radiologist Impression: EXAMINATION: XR FOOT, RIGHT CLINICAL INFORMATION: Diabetic foot infection COMPARISON: None available. TECHNIQUE: AP, lateral, and oblique views of the right foot. FINDINGS: There is soft tissue swelling and ulceration overlying the heel but no underlying radiopaque foreign body. There is a prominent spur off the posterior calcaneus at the insertion of the Achilles tendon and prominent spurring at the insertion of the plantar fascia. Chronic appearing deformity to the fifth PIP joint. No acute fracture or dislocation or destructive process. XR/XR foot RT min 3V IMPRESSION: Soft tissue swelling and ulceration about the heel but no underlying acute osseous abnormality. External Record Review External record reviewed: Office record, Outpatient record and Prior outpatient labs Prescription Management I considered prescription management with: Pain Medication and Antibiotic Chronic Conditions Patient?s care impacted by: Diabetes and Hypertension Critical Care Time Critical Care Time Critical Care Time: No Discharge Plan Discharge Clinical Impression: Blister of right heel Qualifiers: Encounter type: initial encounter Qualified Code(s): S90.821A - Blister (nonthermal), right foot, initial encounter Patient Disposition: Home, Self-Care Instructions: Blister (ED) Additional Instructions: Your lab workup and x-rays today were reassuring. There is no signs of infection on examination today. Keep wound clean and covered. Use topical antibiotic ointment or Vaseline once or twice per day. Allow open to air for several hours per day. Wear sandals and avoid sneakers until completely healed. Follow-up with primary care doctor. Monitor for signs and symptoms of infection including redness, warmth, drainage, pain. Keep your glucose under tight control to allow optimal healing. If you develop new or worsening symptoms call 911 or come back to the ER for further evaluation. Prescriptions: No Action atorvastatin 20 mg tablet 20 mg PO ONCE metoprolol succinate 100 mg tablet extended release 24 hr 100 mg PO DAILY aspirin [Adult Low Dose Aspirin] 81 mg tablet,delayed release (DR/EC) 81 mg PO DAILY Qty: 90 3RF lisinopril 40 mg tablet 40 mg PO DAILY metformin 1,000 mg tablet 1,000 mg PO BID Referrals: Levi Marion MD [Primary Care Provider] - Interventions: ED Discharge Assessment Last Done: 10/06/23 15:38 Discharge Date/Time: 10/06/23 15:39 Print Language: Upper Sorbian
[2023-10-06 13:58] LABS: MANUAL DIFF FLAG NO
[2023-10-06 14:16] LABS: Basophils Absolute Auto 0.2 X10*3/uL (0.0-0.2); Basophils Percent Auto 1.5 % (0-2); Eosinophils Absolute Auto 0.6 X10*3/uL (0.0-0.4); Eosinophils Percent Auto 5.6 % (0-4); Hematocrit 44.7 % (42.0-52.0); Hemoglobin 14.8 g/dl (14.0-18.0); Imm Gran Abs Auto 0.06 X10*3/uL (0.00-0.03); Imm Gran Pct Auto 0.5 % (0.0-0.4); Lymphocytes Absolute Auto 2.5 X10*3/uL (1.2-4.9); Lymphocytes Percent Auto 22.4 % (20-40); Mean Corpuscular HGB Conc 33.1 g/dl (31.0-36.0); Mean Corpuscular Hemoglobin 30.3 pg (27.0-33.0); Mean Corpuscular Volume 91.4 fL (80.0-98.0); Mean Platelet Volume 10.3 fL (9.4-12.4); Monocytes Absolute Auto 0.7 X10*3/uL (0.1-1.2); Monocytes Percent Auto 6.6 % (2-11); Neutrophils Percent Auto 63.4 % (45-73); Platelet Count 258 X10*3/uL (160-400); Red Blood Count 4.89 X10*6/uL (4.60-5.80); Red Cell Distribution Width 13.6 % (11.0-16.0)
[2023-10-06 14:18] LABS: Alanine Aminotransferase 29 U/L (0-40); Albumin Level 4.2 g/dL (3.5-5.0); Alkaline Phosphatase 79 U/L (39-117); Anion Gap 13 (12-20); Aspartate Amino Transferase 22 U/L (5-37); Bilirubin Total 0.8 mg/dL (0.0-1.0); Blood Urea Nitrogen 19 mg/dL (9-16); C Reactive Protein 0.19 mg/dL (< or = 0.50); Calcium 9.8 mg/dL (8.4-10.2); Carbon Dioxide 28 mmol/L (22-29); Chloride 107 mmol/L (96-108); Creatinine Clr Calc Pharmacy 56.4; Estimated Glomerular Filt Rate > 60; Glucose Random 85 mg/dL (60-115); Potassium 4.1 mmol/L (3.3-5.1); Sodium 144 mmol/L (135-145); Total Protein 7.3 g/dL (6.5-8.0)
[2023-10-06 14:52] LABS: Erythrocyte Sedimentation Rate 10 MM/HR (0-15)
[2023-10-06 15:38] VITALS: BP 138/86; PULSE 63; RESP 20; TEMP 36.6; O2SAT 96
== END 2023-10-06 15:39 | disposition home or self-care (01) ==
PROVIDERS: Registered Nurse Emergency; Emergency Provider Emergency Medicine; PCP Internal Medicine
DX: S90.821A Blister (nonthermal), right foot, initial encounter (principal); M79.671 Pain in right foot; X58.XXXA Exposure to other specified factors, initial encounter; Y93.9 Activity, unspecified; Y92.9 Unspecified place or not applicable; Y99.8 Other external cause status; Z87.891 Personal history of nicotine dependence; Z79.899 Other long term (current) drug therapy
CPT/HCPCS: 36415; 73630; 80053; 85025; 85652; 86140; 99282; 99283

== ENCOUNTER 2023-10-18 09:24 | Outpatient (REF) | payer OTHER, SELFPAY ==
[2023-10-18 15:05] LABS: Cholesterol 107 mg/dL (<200); HDL Cholesterol 43 mg/dL (>40); LDL Cholesterol Calculated 48 mg/dL (<100); Triglycerides 81 mg/dL (<150)
== END 2023-10-18 09:25 | disposition home or self-care (01) ==
LOC: HO.CHCLDS 09:24
PROVIDERS: Visit Provider Internal Medicine
DX: E11.69 Type 2 diabetes mellitus with other specified complication (principal); E78.5 Hyperlipidemia, unspecified
CPT/HCPCS: 36415; 80061

== ENCOUNTER 2023-10-28 11:28 | Outpatient (AMB) | payer OTHER, SELFPAY ==
--- NOTE | 2023-10-28 11:34 | A.OFFVIS_ITS ---
Intake Visit Reasons: Kidney stones Intake Note: New Patient presents for initial visit for kidney stones Urology Medications: none Blood Thinner: none Quarrying Manager Required: No Accompanied by: Self / Same As Patient Allergies penicillin V Allergy (Verified 10/28/23 13:17) Hives Penicillins Allergy (Verified 10/28/23 13:17) Hives Medication List - Last Reconciled 10/28/23 by ESTELA Beaulieu- aspirin (Adult Low Dose Aspirin) 81 mg PO DAILY atorvastatin 20 mg PO ONCE lisinopril 40 mg PO DAILY metformin 1,000 mg PO BID metoprolol succinate ER 100 mg PO DAILY HPI Comments Details: Michael is a pleasant 62-year-old male patient of Dr. Douglas English. He has a past medical history of obstructive sleep apnea, hypercholesteremia, hypertension, and type 2 diabetes. Presents to the office today as a new patient for nephrolithiasis. In discussion with the patient today he reports having followed up with his PCP for ongoing right-sided flank pain he has been experiencing at which time a ultrasound was ordered and performed. He reports having been told he had a very small kidney stone on the right side however is unsure of the size. However, recommendations were made fo r urology referral for further assessment evaluation. In review of patient's chart per PCP no by punctate [place] nonobstructing right renal calculus measuring 0.3 x 0.1 x 0.2 cm. There is a simple cyst within the upper pole of the left kidney measuring approximately 0.6 cm. No hydronephrosis. Patient continues to report intermittent right-sided flank pain. However no CVA tenderness noted bilaterally on exam today. He denies any previous history of nephrolithiasis and or surgical intervention for nephrolithiasis. Discussed at length potential causes of nephrolithiasis. Discussed obtaining CT KUB for further assessment evaluation. When asked he denies urinary urgency, urinary frequency, incontinence, nocturia, hematuria, dysuria, foul smelling urine, changes to urinary stream, flank pain, fever, and or chills. He is happy with his current voiding parameters. Unable to obtain urine for urinalysis as patient unable to void. He does report ED however does not find this bothersome at this time as he is not sexually active. He otherwise offers no other issues or concerns at this time. [facility] Medical History Obstructive sleep apnea Hypercholesteremia Hypertension Type 2 diabetes mellitus Surgical History History of penile implant History of tonsillectomy History of total right knee replacement History of total left knee replacement History of repair of anterior cruciate ligament of left knee Family History Mother No problems noted. Father No problems noted. Social History Alcohol intake: former Year quit: 2022 Patient Tobacco Use Status: Former Tobacco user Quit Date: 2022 Tobacco use type: Cigarette Review of Systems Const Reports no additional complaints Eyes Reports no additional complaints ENT Reports no additional complaints Card Reports as per HPI Resp Reports as per HPI GI Reports no additional complaints Reports as per HPI Musc Reports no additional complaints Neuro Reports no additional complaints Psych Reports no additional complaints Endo Reports as per HPI Jcarlos/Lymph Reports no additional complaints Aller/Immun Reports no additional complaints Physical Exam Const General: cooperative, comfortable, no acute distress, well developed, alert and awake Nutritional Appearance: overweight Orientation/consciousness: patient oriented x3 Limitations: no limitations HEENT Head: Yes normal to inspection, Yes normocephalic and Yes atraumatic Ears: hearing grossly normal bilaterally Eyes General: appearance normal, both eyes and all related structures Neck Neck: Yes normal visual inspection and Yes trachea midline Chest Chest palpation & inspection: normal inspection of the chest Resp Effort & Inspection: normal respiratory effort and able to speak in complete sentences Cardio Rate: regular rate GI Inspection: Yes normal to inspection General: Yes no CVA tenderness Back/Spine/Pelvis Back: no CVA tenderness Skin General skin exam: no rashes or lesions noted Neuro General: patient oriented x3 Extrem General: Yes normal to inspection Psych Appearance: grossly normal and well kempt Mental Status: mental status grossly normal Speech and movement: Normal speech and movement present and Clear speech present Affect: normal affect Attitude: cooperative Thought process: Normal thought process present Thought content: Normal thought content present Insight: Fair insight present (Psych) Judgement: Fair judgement present (Psych) Assessment & Plan Assessment & Plan (1) Flank pain: Code(s): R10.9 - Unspecified abdominal pain Category: Medical (2) Nephrolithiasis: Code(s): N20.0 - Calculus of kidney Category: Medical (3) Erectile dysfunction associated with type 2 diabetes mellitus: Code(s): E11.69 - Type 2 diabetes mellitus with other specified complication; N52.1 - Erectile dysfunction due to diseases classified elsewhere Category: Medical Plan Unable to obtain urine for urinalysis. Will obtain CT KUB for further assessment evaluation. Discussed, educated, and stressed the importance of drinking water daily. Discussed adding 1 oz of lemon juice to water daily. Discussed near future metabolic workup with 24 hour urine collection and labs. Discussed potential causes for nephrolithiasis. Will continue with surveillance monitoring of erectile dysfunction at this time. Patient reports to be happy with current voiding parameters. Follow-up in 1-3 months with imaging to be completed prior; or sooner with any issues, concerns, and or questions. Orders: Orders AMB Urinalysis Automated Today Z13.9 - Encounter for screening, unspecified CT kidney stone Today N20.0 - Calculus of kidney, R10.9 - Unspecified abdominal pain Patient Instructions: The patient had an opportunity to ask questions regarding the treatment plan. All questions were answered. Physical exam, labs, and imaging were discussed and reviewed in detail. As well as risks, benefits, and discussion of treatment choices. No major barriers to understanding were identified. The patient expressed understanding and agreement with the above treatment plan. The patient was made aware they should contact our office by phone for worsening of their current condition, the appearance of new symptoms, or with any questions or concerns. Compliance is encouraged with any medications and follow up testing that is ordered. It is a privilege to be allowed the opportunity to participate in? your urological care.? Again, if you have any questions or concerns If you have any questions or concerns please do not hesitate to contact me. The office is [phone]. This note is constructed using voice recognition software. While every effort has been made to ensure accuracy resistance welding machine operator errors may have been included. Yours sincerely, NANCY Beaulieu Coding Level of Care Code New Pt Level 3 (95315) Diagnoses Flank pain R10.9 Nephrolithiasis N20.0 Erectile dysfunction associated with type 2 diabetes mellitus E11.69; N52.1
== END 2023-10-28 12:04 | disposition home or self-care (01) ==
PROVIDERS: PCP Internal Medicine; Visit Provider Nurse Practitioner Family
DX: R10.9 Unspecified abdominal pain (principal); N20.0 Calculus of kidney; E11.69 Type 2 diabetes mellitus with other specified complication; N52.1 Erectile dysfunction due to diseases classified elsewhere
CPT/HCPCS: 99203

== ENCOUNTER → 2023-10-28 11:28 | Outpatient (BNVA) | payer OTHER, SELFPAY | PROVIDERS: PCP Internal Medicine; Visit Provider Nurse Practitioner Family | DX: N20.0 Calculus of kidney (principal); E11.69 Type 2 diabetes mellitus with other specified complication; N52.1 Erectile dysfunction due to diseases classified elsewhere; R10.9 Unspecified abdominal pain | CPT/HCPCS: 99202 ==

== ENCOUNTER 2023-12-21 07:14 | Outpatient (REF) | payer OTHER, SELFPAY ==
--- NOTE | ~2023-12-21 | CT_ITS ---
EXAMINATION: CT ABDOMEN AND PELVIS WITHOUT CONTRAST CLINICAL INFORMATION: Renal calculi COMPARISON: None TECHNIQUE: Multidetector volumetric imaging was performed of the abdomen and pelvis without administration of contrast. Sagittal and coronal reformats where obtained on the technologist's workstation. This CT examination was performed using dose optimization techniques as appropriate, variously including the following: *Automated exposure control *Adjustment of mA and/or kV according to patient size (this includes techniques or standardized protocols for targeted exams where dose is matched to indication/reason for exam; i.e. extremities or head) *Use of iterative reconstruction technique DLP: 966 mGy-cm FINDINGS: LUNG BASES: The lung bases revealed calcifications at the right lung base and minimal scarring no lung nodules or consolidations seen findings are most likely due to asbestos exposure. ABDOMINAL AND PELVIC WALL: There is small fat-containing umbilical hernia. Baboon of penile club room attendant seen in the right lower quadrant, adjacent to right rectus muscle. LIVER AND BILIARY TREE: The liver is normal in size, shape, and attenuation. No suspicious liver lesions. GALLBLADDER: Unremarkable PANCREAS: Unremarkable SPLEEN: Unremarkable ADRENAL GLANDS: Unremarkable. KIDNEYS AND URETERS: Unremarkable. GASTROINTESTINAL TRACT: There is a small hiatal hernia. Stomach is decompressed. Loops of small bowel unremarkable. Loops of colon are normal. There is no evidence of diverticulitis but scattered diverticula seen through the sigmoid colon. Appendix is unremarkable. Small bowel loops are normal. VASCULAR: Unremarkable. LYMPH NODES: No lymphadenopathy. FREE FLUID: No free fluid. BLADDER: Unremarkable PELVIC VISCERA: Unremarkable OSSEOUS STRUCTURES: There are mild degenerative changes in the lower lumbar spine CT/CT kidney stone IMPRESSION: No evidence of nephrolithiasis or urolithiasis. Small hiatal hernia Colonic diverticulosis without diverticulitis Calcifications in the right lower base consistent with asbestos exposure
== END 2023-12-21 07:15 | disposition home or self-care (01) ==
LOC: HO.CT 07:14
PROVIDERS: PCP Internal Medicine; Visit Provider Nurse Practitioner Family
DX: N20.0 Calculus of kidney (principal); R10.9 Unspecified abdominal pain
CPT/HCPCS: 74176

== ENCOUNTER 2024-01-04 08:17 | Outpatient (AMB) | payer OTHER, SELFPAY ==
--- NOTE | 2024-01-04 08:22 | MHC.OFFVIS ---
Intake Visit Reasons: 2m/CT KUB(set) Intake Note: Patient presents for follow up visit on: Nephroltihiasis and CT KUB results Imaging Completed: 12/21/23 Urology Medications: none Blood Thinner: none Flooring Machine Operator Required: No Accompanied by: Self / Same As Patient Allergies penicillin V Allergy (Verified 01/04/24 09:57) Hives Penicillins Allergy (Verified 01/04/24 09:57) Hives Medication List - Last Reconciled 01/04/24 by NANCY Beaulieu aspirin (Adult Low Dose Aspirin) 81 mg PO DAILY atorvastatin 20 mg PO ONCE lisinopril 40 mg PO DAILY metformin 1,000 mg PO BID metoprolol succinate ER 100 mg PO DAILY HPI Comments Details: Michael is a pleasant 63-year-old male patient of Dr. Douglas English. He has a past medical history of obstructive sleep apnea, hypercholesteremia, hypertension, and type 2 diabetes. He presents to the office today for follow-up. Of note, patient was seen approximately 2 months ago as a new patient for nephrolithiasis at which time a CT KUB was ordered for further assessment evaluation. These results reviewed with the patient today. No evidence of nephrolithiasis or urolithiasis. He reports ongoing right lateral pain that he has been experiencing over the last 2 weeks. He reports feeling he possibly pulled a muscle however is unsure if this is related to his gallbladder. He otherwise denies any bothersome urinary issues. When asked he denies urinary urgency, urinary frequency, incontinence, nocturia, hematuria, dysuria, foul smelling urine, changes to urinary stream, flank pain, fever, and or chills. He is happy with his current voiding parameters. Unable to obtain urine for urinalysis as patient unable to void. He does report ED however does not find this bothersome at this time as he is not sexually active. He otherwise offers no other issues or concerns at this time. [facility] Medical History Obstructive sleep apnea Hypercholesteremia Hypertension Type 2 diabetes mellitus Surgical History History of penile implant History of tonsillectomy History of total right knee replacement History of total left knee replacement History of repair of anterior cruciate ligament of left knee Family History Mother No problems noted. Father No problems noted. Social History Alcohol intake: former Year quit: 2022 Patient Tobacco Use Status: Former Tobacco user Tobacco use type: Cigarette Advance Directives: No Advance Directives Information Provided: No Review of Systems Const Reports no additional complaints Eyes Reports no additional complaints ENT Reports no additional complaints Card Reports as per HPI Resp Reports as per HPI GI Reports no additional complaints Reports as per HPI Musc Reports no additional complaints Neuro Reports no additional complaints Psych Reports no additional complaints Endo Reports as per HPI Jcarlos/Lymph Reports no additional complaints Aller/Immun Reports no additional complaints Physical Exam Const General: cooperative, comfortable, no acute distress, well developed, alert and awake Nutritional Appearance: overweight Orientation/consciousness: patient oriented x3 Limitations: no limitations HEENT Head: Yes normal to inspection, Yes normocephalic and Yes atraumatic Ears: hearing grossly normal bilaterally Eyes General: appearance normal, both eyes and all related structures Neck Neck: Yes normal visual inspection and Yes trachea midline Chest Chest palpation & inspection: normal inspection of the chest Resp Effort & Inspection: normal respiratory effort and able to speak in complete sentences Cardio Rate: regular rate GI Inspection: Yes normal to inspection General: Yes no CVA tenderness Back/Spine/Pelvis Back: no CVA tenderness Skin General skin exam: no rashes or lesions noted Neuro General: patient oriented x3 Extrem General: Yes normal to inspection Psych Appearance: grossly normal and well kempt Mental Status: mental status grossly normal Speech and movement: Normal speech and movement present and Clear speech present Affect: normal affect Attitude: cooperative Thought process: Normal thought process present Thought content: Normal thought content present Insight: Fair insight present (Psych) Judgement: Fair judgement present (Psych) Results Reviewed Results Reviewed: Date of Service: 12/21/23 Procedure(s): CT kidney stone EXAMINATION: CT ABDOMEN AND PELVIS WITHOUT CONTRAST FINDINGS: LUNG BASES: The lung bases revealed calcifications at the right lung base and minimal scarring no lung nodules or consolidations seen findings are most likely due to asbestos exposure. ABDOMINAL AND PELVIC WALL: There is small fat-containing umbilical hernia. Baboon of penile air export logistics manager seen in the right lower quadrant, adjacent to right rectus muscle. LIVER AND BILIARY TREE: The liver is normal in size, shape, and attenuation. No suspicious liver lesions. GALLBLADDER: Unremarkable PANCREAS: Unremarkable SPLEEN: Unremarkable ADRENAL GLANDS: Unremarkable. KIDNEYS AND URETERS: Unremarkable. GASTROINTESTINAL TRACT: There is a small hiatal hernia. Stomach is decompressed. Loops of small bowel unremarkable. Loops of colon are normal. There is no evidence of diverticulitis but scattered diverticula seen through the sigmoid colon. Appendix is unremarkable. Small bowel loops are normal. VASCULAR: Unremarkable. LYMPH NODES: No lymphadenopathy. FREE FLUID: No free fluid. BLADDER: Unremarkable PELVIC VISCERA: Unremarkable OSSEOUS STRUCTURES: There are mild degenerative changes in the lower lumbar spine IMPRESSION: No evidence of nephrolithiasis or urolithiasis. Small hiatal hernia Colonic diverticulosis without diverticulitis Calcifications in the right lower base consistent with asbestos exposure Assessment & Plan Assessment & Plan (1) Erectile dysfunction associated with type 2 diabetes mellitus: Code(s): E11.69 - Type 2 diabetes mellitus with other specified complication; N52.1 - Erectile dysfunction due to diseases classified elsewhere Category: Medical (2) Nephrolithiasis: Code(s): N20.0 - Calculus of kidney Category: Medical Plan Unable to obtain urine for urinalysis as patient unable to void. Recent CT KUB results reviewed with the patient today; as noted above. Discussed surveillance monitoring of history of nephrolithiasis. Patient currently denies any bothersome urinary issues. Reports be happy with current voiding parameters. He does report ED however is not sexually active and does not wish to currently undergo further treatment options. Discussed importance of managing diabetes for overall health and well being. Will obtain renal ultrasound in 6 months. Discussed, educated, and stressed the importance of adequate hydration in relation to nephrolithiasis as well as overall health and well-being. Follow-up in 6 months with imaging to be completed prior; or sooner with any issues, concerns, and or questions. Orders: Orders AMB Urinalysis Automated Today Z13.9 - Encounter for screening, unspecified US renal BI 6 Months N20.0 - Calculus of kidney Patient Instructions: The patient had an opportunity to ask questions regarding the treatment plan. All questions were answered. Physical exam, labs, and imaging were discussed and reviewed in detail. As well as risks, benefits, and discussion of treatment choices. No major barriers to understanding were identified. The patient expressed understanding and agreement with the above treatment plan. The patient was made aware they should contact our office by phone for worsening of their current condition, the appearance of new symptoms, or with any questions or concerns. Compliance is encouraged with any medications and follow up testing that is ordered. It is a privilege to be allowed the opportunity to participate in? your urological care.? Again, if you have any questions or concerns If you have any questions or concerns please do not hesitate to contact me. The office is [phone]. This note is constructed using voice recognition software. While every effort has been made to ensure accuracy cell technician errors may have been included. Yours sincerely, NANCY Beaulieu Coding Level of Care Code Est Pt Level 3 (60494) Diagnoses Erectile dysfunction associated with type 2 diabetes mellitus E11.69; N52.1 Nephrolithiasis N20.0
== END 2024-01-04 08:58 | disposition home or self-care (01) ==
PROVIDERS: PCP Internal Medicine; Visit Provider Nurse Practitioner Family
DX: E11.69 Type 2 diabetes mellitus with other specified complication (principal); N52.1 Erectile dysfunction due to diseases classified elsewhere; N20.0 Calculus of kidney
CPT/HCPCS: 99213

== ENCOUNTER 2024-01-04 09:00 | Emergency (ER) | payer OTHER, SELFPAY ==
--- NOTE | ~2024-01-04 | US_ITS ---
EXAMINATION: US RETROPERITONEAL LIMITED (RENAL ONLY) CLINICAL INFORMATION: Right flank pain SAMANTHA. COMPARISON: CT kidney stone December 21, 2023. TECHNIQUE: Ultrasound images were obtained of the bilateral kidneys. Targeted ultrasound images were obtained by the nail technician teacher of the area of concern as indicated by the patient in the right flank, in the region of the right hepatic lobe/right kidney. Radiologist was not in attendance. Images were later provided for interpretation. FINDINGS: RIGHT KIDNEY: 11.6 x 4.9 x 4.5 cm (SAG x AP x TRV). No hydronephrosis. No renal calculi. Renal cortical thickness is normal. Limited visualization. LEFT KIDNEY: 10.7 x 5.4 x 5.2 cm (SAG x AP x TRV). No hydronephrosis. No renal calculi. Renal cortical thickness is normal. Limited visualization. ADDITIONAL FINDINGS: Targeted ultrasound images were obtained by the nail technician teacher of the area of concern as indicated by the patient in right flank/right kidney region and demonstrated no discrete mass or fluid collection. Limited visualization due to bowel gas. US/US renal BI IMPRESSION: 1. No hydronephrosis. No renal calculi. Renal cortical thickness is normal. Limited visualization. 2. Targeted ultrasound images were obtained by the nail technician teacher of the area of concern as indicated by the patient in right flank/right kidney region and demonstrated no discrete mass or fluid collection. Limited visualization due to bowel gas. 3. CT scan could be considered for further evaluation based on the clinical assessment. This study was presented today January 04, 2024 for interpretation. Stat results provided at this time as requested by referring provider.
[2024-01-04 09:05] VITALS: BP 159/74; PULSE 57; RESP 18; TEMP 36.8; O2SAT 98; BMI 36.2
[2024-01-04 09:46] LABS: MANUAL DIFF FLAG NO
[2024-01-04 09:48] LABS: Basophils Absolute Auto 0.1 X10*3/uL (0.0-0.2); Basophils Percent Auto 1.9 % (0-2); Eosinophils Absolute Auto 0.5 X10*3/uL (0.0-0.4); Eosinophils Percent Auto 6.6 % (0-4); Hematocrit 46.2 % (42.0-52.0); Hemoglobin 15.4 g/dl (14.0-18.0); Imm Gran Abs Auto 0.01 X10*3/uL (0.00-0.03); Imm Gran Pct Auto 0.1 % (0.0-0.4); Lymphocytes Absolute Auto 1.8 X10*3/uL (1.2-4.9); Lymphocytes Percent Auto 23.7 % (20-40); Mean Corpuscular HGB Conc 33.3 g/dl (31.0-36.0); Mean Corpuscular Volume 89.9 fL (80.0-98.0); Monocytes Absolute Auto 0.5 X10*3/uL (0.1-1.2); Monocytes Percent Auto 6.9 % (2-11); Neutrophils Absolute Auto 4.6 x10*3/uL (2.0-8.3); Neutrophils Percent Auto 60.8 % (45-73); Platelet Count 226 X10*3/uL (160-400); Red Blood Count 5.14 X10*6/uL (4.60-5.80); Red Cell Distribution Width 12.5 % (11.0-16.0); White Blood Count 7.5 X10*3/uL (4.8-10.8)
[2024-01-04 10:07] LABS: Alanine Aminotransferase 18 U/L (0-40); Albumin Level 4.5 g/dL (3.5-5.0); Alkaline Phosphatase 72 U/L (39-117); Anion Gap 14 (12-20); Aspartate Amino Transferase 19 U/L (5-37); Bilirubin Direct 0.3 mg/dL (0.0-0.5); Bilirubin Total 1.2 mg/dL (0.0-1.0); Blood Urea Nitrogen 24 mg/dL (9-16); Calcium 9.7 mg/dL (8.4-10.2); Carbon Dioxide 24 mmol/L (22-29); Chloride 108 mmol/L (96-108); Creatinine Clr Calc Pharmacy 77.8; Estimated Glomerular Filt Rate 50; Glucose Random 96 mg/dL (60-115); Magnesium 2.1 mg/dL (1.6-2.6); Potassium 4.3 mmol/L (3.3-5.1); Sodium 142 mmol/L (135-145); Total Protein 7.6 g/dL (6.5-8.0)
[2024-01-04 10:10] VITALS: BP 127/67; PULSE 54; RESP 18; TEMP 36.5; O2SAT 97
[2024-01-04 10:28] LABS: Appearance Urine Clear; Color Urine Yellow; Glucose Urine UA Negative (Negative); Leukocyte Esterase Urine Negative (Negative); Nitrite Urine Negative (Negative); PH 5.5 (5.0-9.0); Specific Gravity - Urine >= 1.030 (1.005-1.025); Urine Blood Negative (Negative); Urine Ketones Trace mg/dL (Negative); Urine Protein Negative (Neg-Trace)
--- NOTE | 2024-01-04 10:57 | ED_ITS ---
HPI - General Adult General Chief complaint: General Medical Stated complaint: R flank pain Time Seen by Provider: 01/04/24 09:22 Source: patient, family, RN notes reviewed and old records reviewed Mode of arrival: ambulatory Limitations: no limitations History of Present Illness ED Provider: Dickson Mejía PA-C HPI narrative: 63-year-old male with history of diabetes, obesity, SOPHY, CAD, kidney stones who presents to the ER for evaluation of right-sided flank pain for the last 4 years, acutely worse than last 2 weeks. He recently had a CT scan done of his abdomen and pelvis did not show any evidence of kidney stones, gallstones, hydronephrosis. The study was unremarkable. He states shortly after getting that CT scan done he developed worsening pain in the right side. It is worse with movement. Denies any urinary symptoms including dysuria, urgency, frequency, hematuria. No nausea, vomiting, diarrhea. Denies any injury or falls. His PCP told him the pain was likely muscular in nature. MD complaint: Right-sided flank pain Onset (ago): week(s) Location: back Radiation: non-radiation Severity: moderate Quality: aching Pain Consistency: intermittent Relieving factors: rest Exacerbating factors: movement Associated symptoms: denies other symptoms Treatments prior to arrival: none Related Data Home Medications ?Medication ?Instructions ?Recorded ?Confirmed atorvastatin 20 mg tablet 20 mg PO ONCE 06/21/23 10/03/23 lisinopril 40 mg tablet 40 mg PO DAILY 06/21/23 10/03/23 metformin 1,000 mg tablet 1,000 mg PO BID 06/21/23 10/03/23 metoprolol succinate 100 mg 100 mg PO DAILY 06/21/23 10/03/23 tablet,extended release 24 hr Previous Rx's ?Medication ?Instructions ?Recorded aspirin 81 mg tablet,delayed 81 mg PO DAILY #90 tabs 10/03/23 release (Adult Low Dose Aspirin) cyclobenzaprine 10 mg tablet 10 mg PO TID PRN muscle spasm #10 01/04/24 tabs lidocaine 5 % topical patch 1 patch topical DAILY #15 ea 01/04/24 Allergies Allergy/AdvReac Type Severity Reaction Status Date / Time penicillin V Allergy Hives Verified 01/04/24 09:57 Penicillins Allergy Hives Verified 01/04/24 09:57 Review of Systems 2 Review of Systems: Yes all other systems are reviewed and are negative PMFSH Past Medical History Medical History Obstructive sleep apnea Hypercholesteremia Hypertension Type 2 diabetes mellitus Surgical History History of penile implant History of tonsillectomy History of total right knee replacement History of total left knee replacement History of repair of anterior cruciate ligament of left knee Family History Family History Mother No problems noted. Father No problems noted. Social History Social History Alcohol intake: former Year quit: 2022 Patient Tobacco Use Status: Former Tobacco user Tobacco use type: Cigarette Advance Directives: No Advance Directives Information Provided: No Physical Exam ED Vital Signs: Vital Signs - 24 hr 01/04/24 09:05 01/04/24 10:10 01/04/24 12:14 Temperature 98.2 F 97.7 F 97.3 F Pulse Rate 57 54 51 Respiratory Rate 18 18 16 Blood Pressure 159/74 H 127/67 126/67 Pulse Oximetry 98 97 100 Oxygen Delivery Method Room Air Room Air Room Air 01/04/24 13:56 01/04/24 14:42 Temperature 97.9 F 97.9 F Pulse Rate 50 50 Respiratory Rate 16 16 Blood Pressure 107/61 107/61 Pulse Oximetry 99 99 Oxygen Delivery Method Room Air Room Air BMI result Body Mass Index 36.2 Appearance: Alert. Oriented X3. No acute distress. Head: normocephalic, atraumatic. Eyes: Pupils equal, round and reactive to light. ENT: Pharynx normal. No tonsillar swelling or exudate. Neck: Normal inspection. Neck supple. CVS: Normal heart rate and rhythm. Pulses normal. Respiratory: No respiratory distress. Breath sounds normal. Abdomen: Obese, Soft and nontender. +BS x4. No CVA tenderness bilaterally. there is a small 3cm area of focal tenderness w/ palpable muscle spasm on the right flank, no overlying skin changes, no swelling Skin: Skin warm and dry. Normal skin color. Normal skin turgor. No rashes. Extremities: No lower extremity edema. No joint swelling. Neuro/psych: Oriented X 3. No motor deficit. No sensory deficit. CN II-XII intact. Normal speech and cognition. Medical Decision Making Medical Decision Making [facility] Narrative: 63-year-old male with history of HTN, HLD, dm, SOPHY, CAD who presents to the ER for evaluation of acute on chronic right flank pain. Worse with movement. He has a small area of focal tenderness on examination. CVA is not tender. He has an area of soft tissue tenderness that is on the right posterolateral ribs. Denies any trauma. He had a recent CT scan 2 weeks ago that was reviewed, he brought the paperwork in. Will defer repeat CT scan today. Urinalysis today is normal. His lab work does show a mild SAMANTHA but compared to last fall it is similar findings. Renal ultrasound was performed today that showed no significant findings. Reassured the patient that this is likely musculoskeletal, acute on chronic in nature. Will start Flexeril and Lidoderm patches. Counseled on SAMANTHA and limitation NSAIDs. He will follow up with his primary care doctor. Return precautions were discussed. Differential Diagnosis Differential Diagnoses: The differential diagnosis associated with the presentation includes Kidney stone, pyelonephritis, musculoskeletal pain, muscle strain, referred pain from the gallbladder, biliary colic Lab Data [facility] Lab Attestation statement: I reviewed the patient's lab results. Mild SAMANTHA, overall improved from the fall but was worsened since the last lab draw. May be consistent with CKD. No anemia. No leukocytosis. 01/04/24 09:41 01/04/24 09:41 Labs: Lab Results 01/04/24 01/04/24 Range/Units 09:41 10:15 WBC 7.5 (4.8-10.8) X10*3/uL RBC 5.14 (4.60-5.80) X10*6/uL Hgb 15.4 (14.0-18.0) g/dl Hct 46.2 (42.0-52.0) % MCV 89.9 (80.0-98.0) fL MCH 30.0 (27.0-33.0) pg MCHC 33.3 (31.0-36.0) g/dl RDW 12.5 (11.0-16.0) % Plt Count 226 (160-400) X10*3/uL MPV 10.0 (9.4-12.4) fL Immature Gran % (Auto) 0.1 (0.0-0.4) % Neut % (Auto) 60.8 (45-73) % Lymph % (Auto) 23.7 (20-40) % [place] % (Auto) 6.9 (2-11) % Eos % (Auto) 6.6 H (0-4) % Baso % (Auto) 1.9 (0-2) % Lymph # (Auto) 1.8 (1.2-4.9) X10*3/uL [place] # (Auto) 0.5 (0.1-1.2) X10*3/uL Eos # (Auto) 0.5 H (0.0-0.4) X10*3/uL Baso # (Auto) 0.1 (0.0-0.2) X10*3/uL Abs Immat Gran (auto) 0.01 (0.00-0.03) X10*3/uL Absolute Neuts (auto) 4.6 (2.0-8.3) x10*3/uL Absolute Nucleated RBC 0.000 (0.0-0.012) X10*3/uL Nucleated RBC % (auto) 0.0 (0.0-0.2) /100WBC Sodium 142 (135-145) mmol/L Potassium 4.3 (3.3-5.1) mmol/L Chloride 108 (96-108) mmol/L Carbon Dioxide 24 (22-29) mmol/L Anion Gap 14 (12-20) BUN 24 H (9-16) mg/dL Creatinine 1.42 H (0.5-1.4) mg/dL Estim Creat Clear Calc 77.8 Estimated GFR 50 Random Glucose 96 (60-115) mg/dL Calcium 9.7 (8.4-10.2) mg/dL Magnesium 2.1 (1.6-2.6) mg/dL Total Bilirubin 1.2 H (0.0-1.0) mg/dL Direct Bilirubin 0.3 (0.0-0.5) mg/dL AST 19 (5-37) U/L ALT 18 (0-40) U/L Alkaline Phosphatase 72 (39-117) U/L Total Protein 7.6 (6.5-8.0) g/dL Albumin 4.5 (3.5-5.0) g/dL Urine Color Yellow Urine Appearance Clear Urine pH 5.5 (5.0-9.0) Ur Specific [place] >= 1.030 H (1.005-1.025) Urine Protein Negative (Neg-Trace) mg/dL Urine Glucose (UA) Negative (Negative) mg/dL Urine Ketones Trace (Negative) mg/dL Urine Blood Negative (Negative) Urine Nitrite Negative (Negative) Ur Leukocyte Esterase Negative (Negative) Independent Interpretation I performed an independent interpretation of an: Ultrasound Interpretation: No hydronephrosis appreciated, agree with radiology read Radiology Impression Discussion of test interpretation with radiology: I have reviewed the radiologist's reading. Radiologist Impression: EXAMINATION: US RETROPERITONEAL LIMITED (RENAL ONLY) CLINICAL INFORMATION: Right flank pain SAMANTHA. COMPARISON: CT kidney stone December 21, 2023. TECHNIQUE: Ultrasound images were obtained of the bilateral kidneys. Targeted ultrasound images were obtained by the boatbuilder apprentice wood of the area of concern as indicated by the patient in the right flank, in the region of the right hepatic lobe/right kidney. Radiologist was not in attendance. Images were later provided for interpretation. FINDINGS: RIGHT KIDNEY: 11.6 x 4.9 x 4.5 cm (SAG x AP x TRV). No hydronephrosis. No renal calculi. Renal cortical thickness is normal. Limited visualization. LEFT KIDNEY: 10.7 x 5.4 x 5.2 cm (SAG x AP x TRV). No hydronephrosis. No renal calculi. Renal cortical thickness is normal. Limited visualization. ADDITIONAL FINDINGS: Targeted ultrasound images were obtained by the boatbuilder apprentice wood of the area of concern as indicated by the patient in right flank/right kidney region and demonstrated no discrete mass or fluid collection. Limited visualization due to bowel gas. US/US renal BI IMPRESSION: 1. No hydronephrosis. No renal calculi. Renal cortical thickness is normal. Limited visualization. 2. Targeted ultrasound images were obtained by the boatbuilder apprentice wood of the area of concern as indicated by the patient in right flank/right kidney region and demonstrated no discrete mass or fluid collection. Limited visualization due to bowel gas. 3. CT scan could be considered for further evaluation based on the clinical assessment. Independent Historian Clinical information obtained from an independent historian. History obtained from or confirmed by: Spouse External Record Review External record reviewed: Prior outpatient radiology Tests considered The following testing was considered but not selected: CT scan of the abdomen was considered however he had a recent 1 2 weeks ago that was normal. Prescription Management I considered prescription management with: Pain Medication Chronic Conditions Patient?s care impacted by: Diabetes Critical Care Time Critical Care Time Critical Care Time: No Discharge Plan Discharge Clinical Impression: Back pain, thoracic Qualifiers: Chronicity: chronic Back pain laterality: right Qualified Code(s): M54.6 - Pain in thoracic spine Patient Disposition: Home, Self-Care Instructions: Thoracic Pain (ED) Additional Instructions: Urine test was normal. Ultrasound did not show any stones, swelling or abnormalities of the kidney. Your kidney function was slightly abnormal, this was similar to 03/02/2023. Recommend drinking plenty of fluids and staying hydrated. Avoid anti-inflammatory medications as this can worsen renal function. Your pain is most likely due to muscle strain and spasm. No bending, lifting or twisting. Take medications as prescribed to help with pain and discomfort. Follow up with your Primary Care Doctor this week. If you develop new or worsening symptoms call 911 or come back to the ER for further evaluation. Prescriptions: New cyclobenzaprine 10 mg tablet 10 mg PO TID PRN (Reason: muscle spasm) Qty: 10 0RF lidocaine 5 % adhesive patch,medicated 1 patch topical DAILY Qty: 15 0RF Rx Instructions: leave on most painful area for up to 12 hrs No Action atorvastatin 20 mg tablet 20 mg PO ONCE metoprolol succinate 100 mg tablet extended release 24 hr 100 mg PO DAILY aspirin [Adult Low Dose Aspirin] 81 mg tablet,delayed release (DR/EC) 81 mg PO DAILY Qty: 90 3RF lisinopril 40 mg tablet 40 mg PO DAILY metformin 1,000 mg tablet 1,000 mg PO BID Referrals: Levi Marion MD [Primary Care Provider] - Interventions: ED Discharge Assessment Last Done: 01/04/24 14:42 Discharge Date/Time: 01/04/24 14:46 Print Language: Occitan
[2024-01-04 12:14] VITALS: BP 126/67; PULSE 51; RESP 16; TEMP 36.3; O2SAT 100
[2024-01-04 13:56] VITALS: BP 107/61; PULSE 50; RESP 16; TEMP 36.6; O2SAT 99
[2024-01-04 14:42] VITALS: BP 107/61; PULSE 50; RESP 16; TEMP 36.6; O2SAT 99
== END 2024-01-04 14:46 | disposition home or self-care (01) ==
PROVIDERS: Physician Assistant; Emergency Provider Emergency Medicine Emergency Medical Services; PCP Internal Medicine
DX: M54.6 Pain in thoracic spine (principal); N17.9 Acute kidney failure, unspecified; R10.9 Unspecified abdominal pain; E11.8 Type 2 diabetes mellitus with unspecified complications; I10 Essential (primary) hypertension; E78.00 Pure hypercholesterolemia, unspecified; Z79.84 Long term (current) use of oral hypoglycemic drugs; Z79.02 Long term (current) use of antithrombotics/antiplatelets; Z79.899 Other long term (current) drug therapy; Z79.82 Long term (current) use of aspirin
CPT/HCPCS: 36415; 76775; 80048; 80076; 81003; 83735; 85025; 99212; 99283; 99284

== ENCOUNTER 2024-04-18 10:02 | Outpatient (REF) | payer OTHER, SELFPAY ==
[2024-04-18 11:10] LABS: MANUAL DIFF FLAG NO
[2024-04-18 11:20] LABS: Basophils Absolute Auto 0.1 X10*3/uL (0.0-0.2); Basophils Percent Auto 1.5 % (0-2); Eosinophils Absolute Auto 0.3 X10*3/uL (0.0-0.4); Eosinophils Percent Auto 3.9 % (0-4); Hematocrit 47.7 % (42.0-52.0); Hemoglobin 15.9 g/dl (14.0-18.0); Imm Gran Abs Auto 0.02 X10*3/uL (0.00-0.03); Imm Gran Pct Auto 0.2 % (0.0-0.4); Lymphocytes Absolute Auto 1.6 X10*3/uL (1.2-4.9); Lymphocytes Percent Auto 17.8 % (20-40); Mean Corpuscular HGB Conc 33.3 g/dl (31.0-36.0); Mean Corpuscular Hemoglobin 29.9 pg (27.0-33.0); Mean Corpuscular Volume 89.8 fL (80.0-98.0); Mean Platelet Volume 10.5 fL (9.4-12.4); Monocytes Absolute Auto 0.6 X10*3/uL (0.1-1.2); Monocytes Percent Auto 6.2 % (2-11); Neutrophils Absolute Auto 6.2 x10*3/uL (2.0-8.3); Neutrophils Percent Auto 70.4 % (45-73); Platelet Count 265 X10*3/uL (160-400); Red Blood Count 5.31 X10*6/uL (4.60-5.80); Red Cell Distribution Width 12.6 % (11.0-16.0); White Blood Count 8.8 X10*3/uL (4.8-10.8)
[2024-04-18 12:18] LABS: Alanine Aminotransferase 18 U/L (0-40); Albumin Level 4.4 g/dL (3.5-5.0); Alkaline Phosphatase 72 U/L (39-117); Aspartate Amino Transferase 25 U/L (5-37); Bilirubin Direct 0.5 mg/dL (0.0-0.5); Bilirubin Total 1.2 mg/dL (0.0-1.0); Total Protein 7.5 g/dL (6.5-8.0)
[2024-04-20 15:38] LABS: HCV Log PCR <1.18 NOT DETECTED Log IU/mL (NOT DETECTED); HepC Viral Load <15 NOT DETECTED IU/mL (NOT DETECTED)
[2024-04-27 03:19] LABS: FIB-ALT 13 U/L (9-46); FIB-Alpha-2-Macroglobulin 257 mg/dL (106-279); FIB-Apolipoprotein A1 131 mg/dL (94-176); FIB-GGT 10 U/L (3-70); FIB-Haptoglobin 170 mg/dL (43-212); FIB-Total Bilirubin 0.8 mg/dL (0.2-1.2); Liver Fibrosis Score 0.38; Liver Fibrosis Stage F1-F2; Nec Inflam Act Grade A0; Nec Inflam Act Score 0.04; Reference ID 5201919
== END 2024-04-18 10:03 | disposition home or self-care (01) ==
LOC: HO.10HDL 10:02
PROVIDERS: Visit Provider Internal Medicine Gastroenterology
DX: B19.21 Unspecified viral hepatitis C with hepatic coma (principal); K76.0 Fatty (change of) liver, not elsewhere classified
CPT/HCPCS: 36415; 80076; 81596; 85025; 87522

== ENCOUNTER 2024-04-30 12:55 | Outpatient (AMB) | payer OTHER, SELFPAY ==
[2024-04-30 13:17] VITALS: BP 114/72; PULSE 63; BMI 38.9
--- NOTE | 2024-04-30 13:17 | A.OFFVIS_ITS ---
Vital Signs 04/30/24 13:17 Height 6 ft 3 in Weight 311 lb BMI 38.9 BP 114/72 Blood Pressure Location Lt brachial Position Sitting Pulse 63 Pulse Source Pulse Oximeter Intake Visit Reasons: 6 month f/u Platform Operations Director Required: No Allergies penicillin V Allergy (Verified 04/30/24 13:20) Hives Penicillins Allergy (Verified 04/30/24 13:20) Hives Medication List - Last Reconciled 04/30/24 by Cristal Patel, CHANNING-C amlodipine 5 mg PO DAILY aspirin (Adult Low Dose Aspirin) 81 mg PO DAILY atorvastatin 20 mg PO ONCE lisinopril 40 mg PO DAILY metoprolol succinate ER 100 mg PO DAILY HPI HPI 6 month f/u: Details: Michael is a 63-year-old male with past medical history of obesity, hypertension, hyperlipidemia, diabetes, obstructive sleep apnea without CPAP use, non obstructive coronary artery disease as seen on CTA of the coronaries. He now presents for follow-up. Today he states that he has been feeling well overall. His prior shortness of breath is much improved. He has been walking routinely with his significant others. His primary complaint with walking is left foot pain. He does have sleep apnea and tried to use a CPAP mask but was unable to tolerate it. His prior leg edema has improved. He is still working on weight loss. No shortness of breath at rest. No chest discomfort at rest or with activity. No heart palpitations, lightheadedness, presyncope, syncope, falls. Takes his meds as directed. [facility] Medical History Obstructive sleep apnea Hypercholesteremia Hypertension Type 2 diabetes mellitus Surgical History History of penile implant History of tonsillectomy History of total right knee replacement History of total left knee replacement History of repair of anterior cruciate ligament of left knee Family History Mother No problems noted. Father No problems noted. Social History Alcohol intake: former Year quit: 2022 Patient Tobacco Use Status: Former Tobacco user Tobacco use type: Cigarette Review of Systems Const All systems reviewed & are unremarkable except as noted in HPI and below ENT Denies dizziness Card Details: sharp pain in chest with movement of left arm and with bending Reports chest pain, Denies chest pain at rest, Denies chest pain with activity, Denies rapid heart rate, Denies pedal edema, Denies edema, Denies leg edema, Denies lightheadedness, Denies palpitations, Denies dyspnea, Denies dyspnea on exertion and Denies orthopnea Resp Denies cough, Denies dyspnea and Denies dyspnea on exertion GI Denies hematochezia and Denies change in stool character Musc Denies abnormal gait, Reports limited range of motion, Reports muscle cramps, Denies muscle weakness, Denies numbness, Denies radiating pain into limb, Denies stiffness and Denies tingling Neuro Denies abnormal gait, Denies dizziness, Denies numbness and Denies tingling Endo Denies palpitations Physical Exam Vital Signs: Last Vital Signs Pulse 63 04/30/24 13:17 BP 114/72 04/30/24 13:17 BMI result Body Mass Index 38.9 Assessment & Plan Assessment & Plan (1) SOB (shortness of breath): Code(s): R06.02 - Shortness of breath Category: Medical Plan: Prior Report of shortness of breath with activity and with laying down. He did not appear fluid overloaded on examination. He previously had some leg edema which has resolved. Echocardiogram done 07/13/2023 showed EF 60-65%, mild LVH, normal valves, dilated ascending aorta 3.9 cm. A CTA of the coronary arteries was done on 09/28/2023 showing proximal LAD less than 25% stenosis, mid left circumflex less than 25% stenosis, ramus less than 50% stenosis, RCA less than 25% stenosis, small hiatal hernia. Test results reviewed with him in detail. His shortness of breath did not appear to be related to coronary artery disease. He does have known obstructive sleep apnea and is intolerant to CPAP. Has obesity and had been sedentary which contributed to his symptoms. Benefits of weight loss reviewed with him. He has been walking routinely now and says he is tolerating it better. Continue with physical activity as tolerated. Ongoing risk factor modification. Cardiology follow-up 9 months, sooner if needed. (2) Leg swelling: Code(s): M79.89 - Other specified soft tissue disorders Category: Medical Plan: As above (3) Coronary atherosclerosis: Comment: CTA of the coronary arteries 09/27/2022, proximal LAD less than 25% stenosis, mid left circumflex less than 25% stenosis, ramus less than 50% stenosis, RCA less than 25% stenosis Code(s): I25.10 - Atherosclerotic heart disease of [place] coronary artery without angina pectoris Category: Medical Plan: Newer diagnosis of nonobstructive coronary artery disease based on CTA of coronary arteries. Cardiac risk factor modification reviewed with him. Continue aspirin 81 mg daily indefinitely. Continue atorvastatin with ideal LDL goal less than 70. Labs are being followed by his PCP. Continue metoprolol and lisinopril for blood pressure control. Blood pressure today 114/72. Continue work on weight loss and physical activity. Will forward this note to his PCP. (4) Hypertension: Code(s): I10 - Essential (primary) hypertension Category: Medical Plan: [place] blood pressure goal less than 130/85. Well controlled at this time. No med changes made. Low-salt diet reviewed. (5) Type 2 diabetes mellitus: Code(s): E11.9 - Type 2 diabetes mellitus without complications Category: Medical Plan: Hemoglobin A1c goal less than 7. He says he was recently started on Jardiance. Followed by PCP. (6) Hypercholesteremia: Code(s): E78.00 - Pure hypercholesterolemia, unspecified Category: Medical Plan: [place] LDL goal less than 70. Labs done 03/11/2023 showed LDL 61, AST 27, ALT 34. Continue atorvastatin 20 mg daily. He has updated lipid profile pending. (7) Obstructive sleep apnea: Comment: Not requiring CPAP since tonsillectomy Code(s): G47.33 - Obstructive sleep apnea (adult) (pediatric) Category: Medical Plan: Patient states he has recently tried use of CPAP and is intolerant. He sleeps on his side to help limit SOPHY. Further weight loss would be beneficial as well. Plan Time spent on chart review, documentation, interview and assessment Coding Level of Care Code Est Pt Level 4 (27769) Complex EM visit Add On G2211 Diagnoses SOB (shortness of breath) R06.02 Leg swelling M79.89 Coronary atherosclerosis I25.10 Hypertension I10 Type 2 diabetes mellitus E11.9 Hypercholesteremia E78.00 Obstructive sleep apnea G47.33 Time Spent (min) 30
== END 2024-04-30 13:45 | disposition home or self-care (01) ==
PROVIDERS: PCP Internal Medicine; Visit Provider Nurse Practitioner Family
DX: R06.02 Shortness of breath (principal); M79.89 Other specified soft tissue disorders; I25.10 Atherosclerotic heart disease of native coronary artery without angina pectoris; I10 Essential (primary) hypertension; E11.9 Type 2 diabetes mellitus without complications; E78.00 Pure hypercholesterolemia, unspecified; G47.33 Obstructive sleep apnea (adult) (pediatric)
CPT/HCPCS: 99214; G2211

== ENCOUNTER → 2024-04-30 12:55 | Outpatient (BNVA) | payer OTHER, SELFPAY | PROVIDERS: PCP Internal Medicine; Visit Provider Nurse Practitioner Family | DX: I10 Essential (primary) hypertension (principal); I25.10 Atherosclerotic heart disease of native coronary artery without angina pectoris; E66.9 Obesity, unspecified; E78.5 Hyperlipidemia, unspecified; R06.02 Shortness of breath; M79.89 Other specified soft tissue disorders; E11.9 Type 2 diabetes mellitus without complications; G47.33 Obstructive sleep apnea (adult) (pediatric) | CPT/HCPCS: 99212 ==

== ENCOUNTER 2024-05-02 08:27 | Outpatient (REF) | payer OTHER, SELFPAY ==
[2024-05-02 14:26] LABS: Estimated Average Glucose 105 mg/dL; Hemoglobin A1C 141.4974 umol/L; Hemoglobin A1c % 5.3 % (<6.0); Total Hemoglobin (HGBA1C) 4071.7655 umol/L
[2024-05-02 14:37] LABS: Alanine Aminotransferase 22 U/L (0-40); Albumin Level 4.2 g/dL (3.5-5.0); Alkaline Phosphatase 75 U/L (39-117); Anion Gap 11 (12-20); Aspartate Amino Transferase 26 U/L (5-37); Bilirubin Total 0.9 mg/dL (0.0-1.0); Blood Urea Nitrogen 28 mg/dL (9-16); Calcium 9.3 mg/dL (8.4-10.2); Carbon Dioxide 26 mmol/L (22-29); Chloride 108 mmol/L (96-108); Cholesterol 130 mg/dL (<200); Estimated Glomerular Filt Rate 52; Glucose Random 75 mg/dL (60-115); HDL Cholesterol 41 mg/dL (>40); LDL Cholesterol Calculated 73 mg/dL (<100); Potassium 3.8 mmol/L (3.3-5.1); Sodium 141 mmol/L (135-145); Total Protein 7.1 g/dL (6.5-8.0); Triglycerides 81 mg/dL (<150)
== END 2024-05-02 08:28 | disposition home or self-care (01) ==
LOC: HO.CHCLDS 08:27
PROVIDERS: Visit Provider Internal Medicine
DX: E11.9 Type 2 diabetes mellitus without complications (principal)
CPT/HCPCS: 36415; 80053; 80061; 83036

== ENCOUNTER 2024-05-03 08:44 | Outpatient (REF) | payer OTHER, SELFPAY ==
[2024-05-03 14:47] LABS: Creatinine Urine 185.16 mg/dL; Microalbum/Creatinine Ratio Ur 3.2 ug/mg cr (<30)
== END 2024-05-03 08:45 | disposition home or self-care (01) ==
LOC: HO.CHCLNP 08:44
PROVIDERS: Visit Provider Internal Medicine
DX: E11.9 Type 2 diabetes mellitus without complications (principal)
CPT/HCPCS: 82043; 82570

== ENCOUNTER 2024-06-15 08:23 | Outpatient (REF) | payer OTHER, SELFPAY ==
--- NOTE | ~2024-06-15 | US_ITS ---
CLINICAL HISTORY: N20.0 - Calculus of kidney US Renal Comparison: None Findings: Right kidney normal size and echotexture, 12 cm length. Left kidney normal size and echotexture, 11.1 cm length. Unremarkable kidneys without evidence of hydronephrosis, stone, or cyst Normal color Doppler. IMPRESSION: 1. Normal kidneys. This document has been electronically signed by: Juana Brasher MD on 06/19/2024 10:30:29
== END 2024-06-15 08:24 | disposition home or self-care (01) ==
LOC: HO.HMGCX 08:23
PROVIDERS: PCP Internal Medicine; Visit Provider Nurse Practitioner Family
DX: N20.0 Calculus of kidney (principal)
CPT/HCPCS: 76775

== ENCOUNTER → 2024-06-15 08:26 | Outpatient (BNV) | payer OTHER, SELFPAY | PROVIDERS: PCP Internal Medicine; Visit Provider Radiology Diagnostic Radiology | DX: N20.0 Calculus of kidney (principal) | CPT/HCPCS: 76775 ==

== ENCOUNTER 2024-07-04 08:20 | Outpatient (AMB) | payer OTHER, SELFPAY ==
--- NOTE | 2024-07-04 08:29 | A.OFFVIS_ITS ---
Intake Visit Reasons: 6m/US Intake Note: Patient is Present for Follow Up Ultrasound results Urology Medication:None Antibiotic Allergies: Penicillins Blood Thinners: Aspirin Unable to provide Urine sample Dependency Program Director Required: No Accompanied by: Self / Same As Patient Allergies penicillin V Allergy (Verified 07/04/24 08:57) Hives Penicillins Allergy (Verified 07/04/24 08:57) Hives Medication List - Last Reconciled 07/04/24 by NANCY Beaulieu amlodipine 5 mg PO DAILY aspirin (Adult Low Dose Aspirin) 81 mg PO DAILY atorvastatin 20 mg PO ONCE empagliflozin (Jardiance) 25 mg PO DAILY lisinopril 40 mg PO DAILY metoprolol succinate ER 100 mg PO DAILY semaglutide (Ozempic) 0.25 mg subcut QWEEK HPI Comments Details: Michael is a pleasant 63-year-old male patient of Dr. Douglas English. He has a past medical history of obstructive sleep apnea, hypercholesteremia, hypertension, and type 2 diabetes. He presents to the office today for follow-up of her nephrolithiasis. Recent renal imaging results reviewed with the patient today. 07/07 bilateral kidneys are unremarkable without evidence of hydronephrosis, nephrolithiasis, or renal cysts. He discusses his episodes of nocturia up to 7 times per night. We discussed correlation of sleep apnea with nocturia. He does report noncompliance with CPAP as he continues to work with sleep medicine and finding a machine that works for him. He otherwise denies urinary urgency, urinary frequency, incontinence, hematuria, dysuria, foul smelling urine, changes to urinary stream, flank pain, fever, and or chills. He is happy with his current voiding parameters. Unable to obtain urine for urinalysis as patient unable to void. He does report ED however does not find this bothersome at this time as he is not sexually active. We discussed importance of compliance with CPAP machine for improvement in nocturia as well as overall health and well-being. He discusses awaiting referral to Nephrology Dr. Gonzales. He otherwise offers no other issues or concerns at this time. [facility] Medical History Obstructive sleep apnea Hypercholesteremia Hypertension Type 2 diabetes mellitus Surgical History History of penile implant History of tonsillectomy History of total right knee replacement History of total left knee replacement History of repair of anterior cruciate ligament of left knee Family History Mother No problems noted. Father No problems noted. Social History Alcohol intake: former Year quit: 2022 Patient Tobacco Use Status: Former Tobacco user Tobacco use type: Cigarette Review of Systems Const Reports no additional complaints Eyes Reports no additional complaints ENT Reports no additional complaints Card Reports as per HPI Resp Reports as per HPI GI Reports no additional complaints Reports as per HPI Musc Reports no additional complaints Neuro Reports no additional complaints Psych Reports no additional complaints Endo Reports as per HPI Jcarlos/Lymph Reports no additional complaints Aller/Immun Reports no additional complaints Physical Exam Const General: cooperative, healthy appearing, comfortable, no acute distress, well developed, alert and awake Nutritional Appearance: overweight Orientation/consciousness: patient oriented x3 Limitations: no limitations HEENT Head: Yes normal to inspection, Yes normocephalic and Yes atraumatic Ears: hearing grossly normal bilaterally Eyes General: appearance normal, both eyes and all related structures Neck Neck: Yes normal visual inspection and Yes trachea midline Chest Chest palpation & inspection: normal inspection of the chest Resp Effort & Inspection: normal respiratory effort and able to speak in complete sentences Cardio Rate: regular rate GI Inspection: Yes normal to inspection General: Yes no CVA tenderness Back/Spine/Pelvis Back: no CVA tenderness Skin General skin exam: no rashes or lesions noted Neuro General: patient oriented x3 Extrem General: Yes normal to inspection Psych Appearance: grossly normal and well kempt Mental Status: mental status grossly normal Speech and movement: Normal speech and movement present and Clear speech present Affect: normal affect Attitude: cooperative Thought process: Normal thought process present Thought content: Normal thought content present Insight: Fair insight present (Psych) Judgement: Fair judgement present (Psych) Results Reviewed Results Reviewed: Date of Service: 06/15/24 CLINICAL HISTORY: N20.0 - Calculus of kidney US Renal Comparison: None Findings: Right kidney normal size and echotexture, 12 cm length. Left kidney normal size and echotexture, 11.1 cm length. Unremarkable kidneys without evidence of hydronephrosis, stone, or cyst Normal color Doppler. IMPRESSION: 1. Normal kidneys. Assessment & Plan Assessment & Plan (1) Erectile dysfunction associated with type 2 diabetes mellitus: Code(s): E11.69 - Type 2 diabetes mellitus with other specified complication; N52.1 - Erectile dysfunction due to diseases classified elsewhere Category: Medical (2) Nephrolithiasis: Code(s): N20.0 - Calculus of kidney Category: Medical Plan Unable to obtain urine for urinalysis as patient unable to void. Recent renal ultrasound results reviewed with the patient today; as noted above. Discussed surveillance monitoring of history of nephrolithiasis. Patient currently denies any bothersome urinary issues. Reports be happy with current voiding parameters. He does report ED however is not sexually active and does not wish to currently undergo further treatment options. Discussed importance of managing diabetes for overall health and well being. Will obtain renal ultrasound in 1 year Discussed, educated, and stressed the importance of adequate hydration in relation to nephrolithiasis as well as overall health and well-being. Follow-up in 1 year with imaging to be completed prior; or sooner with any issues, concerns, and or questions. Orders: Orders US renal BI 1 Year N20.0 - Calculus of kidney Patient Instructions: The patient had an opportunity to ask questions regarding the treatment plan. All questions were answered. Physical exam, labs, and imaging were discussed and reviewed in detail. As well as risks, benefits, and discussion of treatment choices. No major barriers to understanding were identified. The patient expressed understanding and agreement with the above treatment plan. The patient was made aware they should contact our office by phone for worsening of their current condition, the appearance of new symptoms, or with any questions or concerns. Compliance is encouraged with any medications and follow up testing that is ordered. It is a privilege to be allowed the opportunity to participate in? your urological care.? Again, if you have any questions or concerns If you have any questions or concerns please do not hesitate to contact me. The office is [phone]. This note is constructed using voice recognition software. While every effort has been made to ensure accuracy healthcare recruiter errors may have been included. Yours sincerely, NANCY Beaulieu Coding Level of Care Code Est Pt Level 3 (63870) Diagnoses Erectile dysfunction associated with type 2 diabetes mellitus E11.69; N52.1 Nephrolithiasis N20.0
== END 2024-07-04 09:10 | disposition home or self-care (01) ==
PROVIDERS: PCP Internal Medicine; Visit Provider Nurse Practitioner Family
DX: E11.69 Type 2 diabetes mellitus with other specified complication (principal); N52.1 Erectile dysfunction due to diseases classified elsewhere; N20.0 Calculus of kidney
CPT/HCPCS: 99213

== ENCOUNTER → 2024-07-04 08:20 | Outpatient (BNVA) | payer OTHER, SELFPAY | PROVIDERS: PCP Internal Medicine; Visit Provider Nurse Practitioner Family | DX: R35.1 Nocturia (principal); G47.30 Sleep apnea, unspecified; N52.1 Erectile dysfunction due to diseases classified elsewhere; N20.0 Calculus of kidney; E11.69 Type 2 diabetes mellitus with other specified complication; Z99.89 Dependence on other enabling machines and devices; Z91.199 Patient's noncompliance with other medical treatment and regimen due to unspecified reason | CPT/HCPCS: 99212 ==

== ENCOUNTER 2024-11-02 08:29 | Outpatient (REF) | payer OTHER, SELFPAY ==
--- OUTSIDE RECORDS SUMMARY | 2024-11-02 08:38 | XMS_ITS ---
Author Organization [facility] Address [address] [place] [address] Care Team Providers Care Transportation Services Representative Name Role Phone Phillip ryan, Levi Primary Care Prov ider Eloy Gay Jr Unavailable Allergies Allergen (clinical drug ingredient) Drug/Non Drug Allergy documented on EMR Reaction Allergy Type Onset Date Status Penicillin Unknown Drug Allergy Active Results Component Value Reference Range Notes Liver Fibrosis Pnl Reviewed date:04/27/2024 07:52:13 AM Interpretation: Performing Lab:[facility], [address] [place] [id number] Notes/Report: Liver Fibrosis Score 0.38 Liver Fibrosis Stage F1-F2 Liver Fibrosis Interpretation SEE NOTE minimal fibrosis Fibro Test Score (f) Metavir Score f>=0 and f<=0.21 : F0 (no fibrosis) f>0.21 and f<=0.27 : F0-F1 (no fibrosis) f>0.27 and f<=0.31 : F1 (minimal fibrosis) f>0.31 and f<=0.48 : F1-F2 (minimal fibrosis) f>0.48 and f<=0.58 : F2 (moderate fibrosis) f>0.58 and f<=0.72 : F3 (advanced fibrosis) f>0.72 and f<=0.74 : F3-F4 (advanced fibrosis) f>0.74 and f<=1.00 : F4 (severe fibrosis) Nec Inflam Act Score 0.04 Nec Inflam Act Grade A0 Nec Inflam Act Interpretation SEE NOTE no activity ActiTest Score (a) Metavir Score a>=0 and a<=0.17 : A0 (no activity) a>0.17 and a<=0.29 : A0-A1 (no activity) a>0.29 and a<=0.36 : A1 (minimal activity) a>0.36 and a<=0.52 : A1-A2 (minimal activity) a>0.52 and a<=0.60 : A2 (significant activity) a>0.60 and a<=0.62 : A2-A3 (significant activity) a>0.62 and a<=1.00 : A3 (severe activity) MVD-Ddnbs-1-Macroglobulin 257 106-279 mg/dL FIB-Haptoglobin 170 43-212 mg/dL FIB-Apolipoprotein A1 131 94-176 mg/dL FIB-Total Bilirubin 0.8 0.2-1.2 mg/dL FIB-GGT 10 3-70 U/L FIB-ALT 13 9-46 U/L Reference ID [id number] Footnote SEE NOTE The reliability of results is dependent on compliance with the preanalytical and analytical conditions recommended by [employer]. The tests have to be deferred for: acute hemolysis, acute hepatitis, acute inflammation, extra hepatic cholestasis. The advice of a specialist should be sought for interpretation in chronic hemolysis and Gilbert's syndrome. The test interpretation is not validated in liver transplant patients. Isolated extreme values of one of the components should lead to caution in interpreting the results. In case of discordance between a biopsy result and a test, it is recommended to seek the advice of a specialist. The causes of these discordances could be due to a flaw of the test or to a flaw in the biopsy: i.e. a liver biopsy has a 33% variability rate for one fibrosis stage. FibroTest is interpretable for chronic hepatitis B and C, alcoholic and non alcoholic steatosis. ActiTest is interpretable for chronic hepatitis B and C. The performance characteristics have been determined by [facility]. It has not been cleared or approved by the U.S. Food and Drug Administration. Performance characteristics refer to the analytical performance of the test. [employer], the associated logo, [employer] and all associated [employer] lee are the registered trademarks of [employer]. All third alliance party lee - (R) and (TM) - are the property of their respective owners. (C) [phone] [employer]. All rights reserved. THIS TEST WAS PERFORMED AT: [email or web address] [address] [place] [address] RORY GUPTA MD,PHD,ALICIA REASON FOR VISIT Patient presents today for abd pain Medications Medication SIG (Take, Route, Frequency, Duration) Notes Start Date End Date Status Metoprolol Succinate ER 100 MG Oral for 30 Active Atorvastatin Calcium 20 MG TAKE 1 TABLET BY MOUTH 1 TIME Oral for 30 Active Jardiance 25 MG Oral for 90 Ac tive Famotidine 40 MG TAKE ONE TABLET BY M OUTH AT BEDTIME Oral for 90 Active Lisinopril 40 MG 1 tablet Orally Once a day Active Social History Tobacco Use: Social History Observation Description Date Details (start date - stop date) Never Smoker NA - NA Tobacco Use/Smoking Question Answer Notes Patient is a nonsmoker Alcohol Screen Question Answer Notes Did you have a drink containing alcohol in the p ast year? No Points 0 Interpretation Negative Section Notes: has a few beers a week Problems Problem Type SNOMED Code ICD Code Onset Dates Problem Status W/U Status Risk Notes Problem 989734506 Hepatitis C viru s infection with hepatic coma, unspecified chronicity (B19.21) Active confirmed Problem 512382766 Fatty liver (K76.0) Active confirmed Problem [id number] Eosinophilic esophagitis (K20.0) Active confirmed Vital Signs Temperature 97.9 degrees Fahrenheit 04/18/20 24 Blood pressure systolic 000 mm Hg 04/18/20 24 Blood pressure diastolic 00 mm Hg 024 Height 75 in 04/18/2024 Weight 315 lbs 04/18/2024 BMI 39.37 kg/m2 04/18/2024 Encounters Encounter Location Date Provider Diagnosis [facility] [address] [place] [id number] 04/18/2024 Eloy Pena Jr Hepatitis C virus infection with hepatic coma, unspecified chronicity B19.21 ; Fatty liver K76.0 ; Change in bowel habits R19.4 and Eosinophilic esophagitis K20.0 Assessments Encounter Date Diagnosis (ICD Code) Assessment Notes Treatment Notes Treatment Clinical Notes Section Notes 04/18/2024 Hepatitis C virus infection with hepatic coma, unspecified chronicity (ICD-10 - B19.21) Hepatitis C material was printed At this time, he appears stable. He will have further laboratory testing for followup on his liver issues. He will continue famotidine for his reflux and eosinophilic esophagitis. Followup in one year. 04/18/2024 Fatty liver (ICD-10 - K76.0) At this time, h e appears stable. He will have further laboratory testing for followup on his liver issues. He will continue famotidine for his reflux and eosinophilic esophagitis. Followup in one year. 04/18/2024 Change in bowel habits (ICD-10 - R19.4) At this time, he appears stable. He will have further laboratory testing for followup on his liver issues. He will continue famotidine for his reflux and eosinophilic esophagitis. Followup in one year. 04/18/2024 Eosinophilic esophagitis (ICD-10 - K20.0) At this time, h e appears stable. He will have further laboratory testing for followup on his liver issues. He will continue famotidine for his reflux and eosinophilic esophagitis. Followup in one year. Plan Of Treatment Treatment Notes Assessment Notes Hepatitis C virus infection with hepatic coma, unspecified chronicity Hepatitis C material was printed Pending Test Test Name Order Date LIVER PROFILE 04/18/2024 CBC w/o DIFF 04/18/2024 HEPATITIS C VIRAL LOAD 04/18/2024 Next Appt Details Follow Up: 1 Year, Reason: Provider Name:Eloy vigil , 04/15/2025 09:00:00 AM, [address] [place] [address], [address], [phone], Progress Notes * DIONNE NJOB:1960 (63 yo M)Acc No.[id number]:04/18/2024 Progress Notes Patient:?REDDNEO ASHLY Provider:?Eloy Pena MD :1960???Age:63 Y???Sex:Male Yanick e:04/18/2024 Address:[address] [place], [place] [id number] Pcp:Levi harley md Subjective: * Chief Complaints: * ???1. Patient presents today for abd pain. * HPI: ???New symptom(s):? The patient is a pleasant 63-year-old man seen today in followup. He was seen in october of this year for problems with diarrheal symptoms. Stool testing including GI panel, ova and parasites, and white blood cells were negative. Previous colonoscopy in July 2021 was normal. We reviewed this today. ?He reports improvement in his bowel movements with more solid stools. He has no more diarrhea. He has no rectal bleeding. ?He describes a history of fatty liver and hepatitis C infection. He states this was dormant and did not require treatment. He believes this was sexually acquired. He has no history of jaundice, pruritus, or fatigue. He enjoys a good appetite. He has been able to lose some weight, down from 375 pounds. ?Outside records are reviewed including an endoscopy from January of last year where a diagnosis of eosinophilic esophagitis was made. He was treated fours several weeks with an inhaler, and has no complaints of dysphagia, hematemesis, or melena. He reports subsequent allergy evaluation showed no environmental or food allergies. * Medical History:?type II janes betes, Hypertension, Elevated cholesterol, SOPHY, not requiring CPAP since tonsillectomy, Coronary Artery Disease. * Surgical History:?left acl , left total knee replacement , right total knee replacement , tonsillectomy . * Family History:?Father: dece ased 80 yrs, colon and prostate cancer, diagnosed with HTN (hypertension), Colon cancer.?Mother: 88 yrs, breast cancer, diagnosed with HTN (hypertension).?Siblings: alive, brother, diagnosed with Diabetes.? No family history of liver cancer. * Social History:?Tobacco Use:?Tobacco Use/Smoking?Patient is a?nonsmoker.?Drugs/Alcohol:?Alcohol Screen?Did you have a drink containing alcohol in the past year??No,?Points?0,?Interpretation?Negative.?Miscellaneous:?Marital status: single. Occupation: retired. ???has a few beers a week. * Medications:?Taking Lisinopr il 40 MG Tablet 1 tablet Orally Once a day, Taking Metoprolol Succinate ER 100 MG Tablet Extended Release 24 Hour Oral , Taking Atorvastatin Calcium 20 MG Tablet TAKE 1 TABLET BY MOUTH 1 TIME Oral , Taking Famotidine 40 MG Tablet TAKE ONE TABLET BY MOUTH AT BEDTIME Oral , Taking Jardiance 25 MG Tablet Oral , Discontinued metFORMIN HCl 500 MG Tablet TAKE 2 TABLETS BY MOUTH TWICE DAILY WITH THE MORNING AND EVENING MEAL Oral twice a day, Medication List reviewed and reconciled with the patient * Allergies:?Penicillin. Objective: * Vitals:?Wt: 315 lbs, Ht: 75 in, BMI:39.37 Index, BP: 000/00 mm Hg, Temp: 97.9. * Examination: ???General Examination: ???On examination today, he appears well. Skin is anicteric. Lungs are clear. Heart shows a regular rate and rhythm. Abdomen is soft without focal mass or tenderness. Extremities are without edema. Assessment: * Assessment: 1.?Hepatitis C virus infecti on with hepatic coma, unspecified chronicity - B19.21 (Primary)?2.?Fatty liver - K76.0?3.?Change in bowel habits - R19.4?4.?Eosinophilic esophagitis - K20.0? At this time, he appears sta ble. He will have further laboratory testing for followup on his liver issues. He will continue famotidine for his reflux and eosinophilic esophagitis. Followup in one year. Plan: * Treatment: 2.?Fatty liver?LAB: LIVER PROFILE ?LAB: HEPATITIS C VIRAL LOAD ?LAB: Liver Fibrosis Pnl * Procedure Codes:?3017F COLOR ECTAL CA SCREEN DOC REV, G9903 Pt scrn tbco id as non user, G9744 PATIENT NOT ELIG D/T ACTIVE DX HTN * Preventive Medicine:? ??Counseling:?Care goal follow-up plan:?Above Normal BMI Follow-up?Giving encouragement to exercise,?BMI management provided?Yes.? * Follow Up:?1 Year * * Sign off status: Completed true * Provider:?Eoly Pena MD Date:?1 06/18/2023 Generated for Teri barrera/Xander/eTransmitting on:?11/02/2024 08:38 AM EDT History and Physical Notes * HPI (History of Present Illness) Category Sub-Category Detail Notes Category Not es New symptom(s) The patient is a pleasant 63-year-old man seen today in followup. He was seen in october of this year for problems with diarrheal symptoms. Stool testing including GI panel, ova and parasites, and white blood cells were negative. Previous colonoscopy in July 2021 was normal. We reviewed this today. He reports improvement in his bowel movements with more solid stools. He has no more diarrhea. He has no rectal bleeding. He describes a history of fatty liver and hepatitis C infection. He states this was dormant and did not require treatment. He believes this was sexually acquired. He has no history of jaundice, pruritus, or fatigue. He enjoys a good appetite. He has been able to lose some weight, down from 375 pounds. Outside records are reviewed including an endoscopy from January of last year where a diagnosis of eosinophilic esophagitis was made. He was treated fours several weeks with an inhaler, and has no complaints of dysphagia, hematemesis, or melena. He reports subsequent allergy evaluation showed no environmental or food allergies. Examination Category Sub-Category Detail Notes Category Not es General Examination On exami nation today, he appears well. Skin is anicteric. Lungs are clear. Heart shows a regular rate and rhythm. Abdomen is soft without focal mass or tenderness. Extremities are without edema.
[2024-11-02 14:20] LABS: MANUAL DIFF FLAG NO
[2024-11-02 14:28] LABS: Basophils Absolute Auto 0.2 X10*3/uL (0.0-0.2); Basophils Percent Auto 2.1 % (0-2); Eosinophils Absolute Auto 0.5 X10*3/uL (0.0-0.4); Eosinophils Percent Auto 6.9 % (0-4); Hematocrit 50.8 % (42.0-52.0); Hemoglobin 16.6 g/dl (14.0-18.0); Imm Gran Abs Auto 0.04 X10*3/uL (0.00-0.03); Imm Gran Pct Auto 0.5 % (0.0-0.4); Lymphocytes Absolute Auto 1.6 X10*3/uL (1.2-4.9); Lymphocytes Percent Auto 21.6 % (20-40); Mean Corpuscular HGB Conc 32.7 g/dl (31.0-36.0); Mean Corpuscular Hemoglobin 29.6 pg (27.0-33.0); Mean Corpuscular Volume 90.6 fL (80.0-98.0); Mean Platelet Volume 10.7 fL (9.4-12.4); Monocytes Absolute Auto 0.6 X10*3/uL (0.1-1.2); Monocytes Percent Auto 7.9 % (2-11); Neutrophils Absolute Auto 4.6 x10*3/uL (2.0-8.3); Platelet Count 219 X10*3/uL (160-400); Red Blood Count 5.61 X10*6/uL (4.60-5.80); Red Cell Distribution Width 13.8 % (11.0-16.0); White Blood Count 7.6 X10*3/uL (4.8-10.8)
[2024-11-02 14:44] LABS: Alanine Aminotransferase 28 U/L (0-40); Albumin Level 4.4 g/dL (3.5-5.0); Alkaline Phosphatase 80 U/L (39-117); Anion Gap 10 (12-20); Aspartate Amino Transferase 30 U/L (5-37); Bilirubin Total 1.4 mg/dL (0.0-1.0); Blood Urea Nitrogen 17 mg/dL (9-16); Calcium 9.3 mg/dL (8.4-10.2); Carbon Dioxide 27 mmol/L (22-29); Chloride 109 mmol/L (96-108); Cholesterol 114 mg/dL (<200); Estimated Glomerular Filt Rate 56; Glucose Random 80 mg/dL (60-115); HDL Cholesterol 39 mg/dL (>40); LDL Cholesterol Calculated 61 mg/dL (<100); Potassium 4.2 mmol/L (3.3-5.1); Sodium 142 mmol/L (135-145); Total Protein 7.3 g/dL (6.5-8.0); Triglycerides 74 mg/dL (<150)
[2024-11-02 15:03] LABS: TSH reflex Free T4 0.84 uIU/mL (0.32-4.0)
== END 2024-11-02 08:30 | disposition home or self-care (01) ==
LOC: HO.CHCLDS 08:29
PROVIDERS: Visit Provider Internal Medicine
DX: E11.9 Type 2 diabetes mellitus without complications (principal)
CPT/HCPCS: 36415; 80053; 80061; 84443; 85025

== ENCOUNTER 2024-12-25 13:46 | Outpatient (AMB) | payer OTHER, SELFPAY ==
--- NOTE | 2024-12-25 14:15 | MHC.OFFVIS ---
Vital Signs 12/25/24 14:16 Height 6 ft 3 in Weight 306 lb 7.08 oz BMI 38.3 BP 114/72 Blood Pressure Location Lt brachial Position Sitting Pulse 64 Pulse Source Monitor Intake Visit Reasons: Preop/ Neos /surgery 12/28 Snow Maker Required: No Materials Planning Analyst: Materials Planning Analyst Present Allergies penicillin V Allergy (Verified 12/25/24 14:19) Hives Penicillins Allergy (Verified 12/25/24 14:19) Hives Medication List - Last Reconciled 12/25/24 by Cristal Patel NP-C amlodipine 5 mg PO DAILY aspirin (Adult Low Dose Aspirin) 81 mg PO DAILY atorvastatin 20 mg PO ONCE empagliflozin (Jardiance) 25 mg PO DAILY gabapentin 300 mg PO TID lisinopril 40 mg PO DAILY metoprolol succinate ER 100 mg PO DAILY pantoprazole 40 mg PO BID semaglutide (Ozempic) 1 mg subcut QWEEK HPI HPI Preop/ Neos /surgery 12/28: Details: Michael is a 63-year-old male with past medical history of obesity, hypertension, hyperlipidemia, diabetes, obstructive sleep apnea without CPAP use, nonobstructive coronary artery disease as seen on CTA of the coronaries who presents for follow-up. Today he states that he has been feeling well overall since his last visit 04/30/2024. He has not had any chest discomfort at rest or with activity. He is denying shortness of breath with activity. When he lays down at night sometimes he coughs and has thick yellow sputum with red streaks in it. No fevers or chills. He tells me he was told he has asbestosis. No heart palpitations, lightheadedness, presyncope, syncope. He does have sleep apnea and tried to use a CPAP mask but was unable to tolerate it. He will be having arthroscopic shoulder surgery on Tuesday. Does have some mild leg edema admits to being mostly sedentary, sitting. He is still working on weight loss. Takes his meds as directed. [facility] Medical History Obstructive sleep apnea Hypercholesteremia Hypertension Type 2 diabetes mellitus Surgical History History of penile implant History of tonsillectomy History of total right knee replacement History of total left knee replacement History of repair of anterior cruciate ligament of left knee Family History Mother No problems noted. Father No problems noted. Social History Alcohol intake: former Year quit: 2022 Patient Tobacco Use Status: Former Tobacco user Tobacco use type: Cigarette Review of Systems Const All systems reviewed & are unremarkable except as noted in HPI and below ENT Denies dizziness Card Denies chest pain, Denies chest pain at rest, Denies chest pain with activity, Denies rapid heart rate, Denies pedal edema, Denies edema, Denies leg edema, Denies lightheadedness, Denies palpitations, Denies dyspnea, Denies dyspnea on exertion and Denies orthopnea Resp Reports change in phlegm color, Reports cough, Denies dyspnea and Denies dyspnea on exertion GI Denies hematochezia and Denies change in stool character Musc Denies abnormal gait, Denies limited range of motion, Denies muscle cramps, Denies muscle weakness, Denies numbness, Denies radiating pain into limb, Denies stiffness and Denies tingling Neuro Denies abnormal gait, Denies dizziness, Denies numbness and Denies tingling Endo Denies palpitations Physical Exam Vital Signs: Last Vital Signs Pulse 64 12/25/24 14:16 BP 114/72 12/25/24 14:16 BMI result Body Mass Index 38.3 Const General: cooperative, healthy appearing, comfortable and no acute distress Orientation/consciousness: patient oriented x3 Neck Neck: Yes normal visual inspection and Yes no JVD Resp Effort & Inspection: normal respiratory effort Auscultation: clear to auscultation bilaterally, no rales, no rhonchi and no wheezes Cardio Jugular venous distension: no JVD Rate: regular rate Rhythm: regular rhythm Heart sounds: S1 normal heart sound present, S2 normal heart sound present, no murmurs and no rubs Neuro General: patient oriented x3 Extrem General: Yes normal to inspection, No no pedal edema and No calf tenderness Psych Appearance: grossly normal Mental Status: mental status grossly normal Speech and movement: Normal speech and movement present Office Procedures EKG Details: Today, read by me, Normal sinus rhythm, rate 64, Qtc 433ms [id number], Complete Assessment & Plan Assessment & Plan (1) Coronary atherosclerosis: Comment: CTA of the coronary arteries 09/27/2022, proximal LAD less than 25% stenosis, mid left circumflex less than 25% stenosis, ramus less than 50% stenosis, RCA less than 25% stenosis Code(s): I25.10 - Atherosclerotic heart disease of [place] coronary artery without angina pectoris Category: Medical Plan: Prior reports of shortness of breath. Cardiac evaluation included Echocardiogram done 07/13/2023 showed EF 60-65%, mild LVH, normal valves, dilated ascending aorta 3.9 cm. A CTA of the coronary arteries was done on 09/28/2023 showing proximal LAD less than 25% stenosis, mid left circumflex less than 25% stenosis, ramus less than 50% stenosis, RCA less than 25% stenosis, small hiatal hernia. Nonobstructive coronary artery disease. No anginal symptoms. The need for ongoing Cardiac risk factor modification reviewed with him. Continue aspirin 81 mg daily indefinitely. Continue atorvastatin with ideal LDL goal less than 70. Labs are being followed by his PCP. Continue metoprolol and lisinopril for blood pressure control. Blood pressure today 114/72. Continue work on weight loss and physical activity. Will forward this note to his PCP. (2) Preop cardiovascular exam: Code(s): Z01.810 - Encounter for preprocedural cardiovascular examination Category: Medical Plan: Preop for arthroscopic shoulder surger on 12/28/2024. Patient is low to intermediate cardiac risk. Aspirin can be held as needed for the procedure and plan restart when cleared by surgeon to do so. Continue antihypertensives. Call/consult Cardiology if needed. (3) Leg swelling: Code(s): M79.89 - Other specified soft tissue disorders Category: Medical Plan: Mild leg edema, not new. He does not appear fluid overloaded on exam. He is on amlodipine 5 mg daily. Blood pressure is well controlled. Will reduce it down to 2.5 mg daily and continue his usual metoprolol and lisinopril. Reviewed low-salt diet, leg elevation and compression stocking use if able. (4) Hypertension: Code(s): I10 - Essential (primary) hypertension Category: Medical Plan: [place] blood pressure goal less than 130/80. Initial blood pressure today 114/72, recheck done by me 110/70. Reducing metoprolol to see if this helps with leg edema. (5) Type 2 diabetes mellitus: Code(s): E11.9 - Type 2 diabetes mellitus without complications Category: Medical Plan: Hemoglobin A1c goal less than 7. Followed by PCP. (6) Hypercholesteremia: Code(s): E78.00 - Pure hypercholesterolemia, unspecified Category: Medical Plan: [place] LDL goal less than 70. Labs done 11/02/2024 shows LDL 61. Continue atorvastatin. (7) Obstructive sleep apnea: Comment: Not requiring CPAP since tonsillectomy Code(s): G47.33 - Obstructive sleep apnea (adult) (pediatric) Category: Medical Plan: Patient states he has recently tried use of CPAP and is intolerant. He sleeps on his side to help limit SOPHY. Further weight loss would be beneficial as well. (8) Cough: Code(s): R05.9 - Cough, unspecified Category: Medical Plan: He reports intermittent cough with yellow and red streaked sputum. Occurring mostly at night. He reports being told in the past that he had asbestosis. Recent chest x-ray showed no active disease, mild pleural thickening or effusion in the right lung base. Message sent to his PCP. May need CT scan for further evaluation. Plan I discussed with the patient the plan to proceed with shoulder surgery, as there are no cardiac contraindications. We talked about reducing amlodipine to manage leg swelling and the importance of monitoring salt intake and elevating legs. I will send message to his PCP regarding yellow, red streaked sputum. The patient was advised to inform his primary care physician about respiratory symptoms for additional management. Medications: New amlodipine dose reduced 2.5 mg PO DAILY 90 tabs 1RF Patient Instructions: - Proceed with scheduled shoulder surgery. - Reduce amlodipine to 2.5 mg, monitor salt intake, and elevate legs to manage swelling. - Consider wearing compression stockings if suitable. - Follow up with PCP for cough - Notify this office if you have any new chest discomfort, sob. Patient was informed and verbally consented to the use of an ambient scribe for clinic note documentation during this visit. Visit time spent on chart review, interview, assessment, orders, documentation. Coding Level of Care Code Est Pt Level 4 (16715) Complex EM visit Add On G2211 Diagnoses Coronary atherosclerosis I25.10 Preop cardiovascular exam Z01.810 Leg swelling M79.89 Hypertension I10 Type 2 diabetes mellitus E11.9 Hypercholesteremia E78.00 Obstructive sleep apnea G47.33 Cough R05.9 CPT Codes EKG - CPT: 63165-[id number], Complete ([id number]) Time Spent (min) 28
[2024-12-25 14:16] VITALS: BP 114/72; PULSE 64; BMI 38.3
--- OUTSIDE RECORDS SUMMARY | 2024-12-25 15:08 | XMS_ITS | Encounter Summary ---
Author Organization [employer] Address [address] [facility] 7 [place] [address] Care Team Providers Care Record Changer Assembler Name Role Phone Levi Marion MD Primary Care Prov ider Reason for Visit * Reason Onset Date Comments Med Refill 10/12/2023 Encounter Details Date Type Department Care Team ([facility] st Contact Info) Description 10/12/2023 Refill [facility] P[facility]S [address], [place] [phone] Levi Marion MD [address], [place] [phone] Type 2 diabetes mellitus without complication, without long-term current use of insulin ([facility]) Social History Tobacco Use Types Packs/Day Years Used Date Smoking Tobacco: Never Passive Smoke Exposure: Never Smokeless Tobacco: Never Alcohol Use Standard Drinks/Week Comments Never 0 (1 standard drink = 0.6 oz pur e alcohol) Depression Answer Date Recorded Patient Health Questionnaire-9 Score 0 05/31/2022 Housing Stability Answer Date Recorded What is your housing situation today? I have lazara sing 03/28/[address] you li ve. Do you have problems with any of the following? None of the above 03/28/2023 Food Insecurity Answer Date Recorded Within the past 12 months, y ou worried that your food would run out before you got money to buy more: Never True 03/28/2023 Within the past 12 months,th e food you bought just didn't last and you didn't have enough money to get more: Never True Transportation Answer Date Recorded In the past 12 months, has l ack of transportation kept you from medical appts, meetings, work or from getting things needed for daily living? No 03/28/2023 Utilities Answer Date Recorded In the past 12 months, has t he electric, gas, oil or water company threatened to shut off services in your home? No 03/28/2023 Depression Answer Date Recorded Patient Health Questionnaire-2 Score 0 05/31/2022 Sex and Gender Information Value Date Recorded Sex Assigned at Male 04/12/2022 10:22 AM EDT Legal Sex Male 10:22 AM EDT Gender Identity Male 04/12/2022 10:22 AM EDT Sexual Orientation Straight 04/12/2022 10 :22 AM EDT documented as of this encounter Plan of Treatment Upcoming Encounters Date Type Department Care Team (Late st Contact Info) Description 02/01/2025 10:30 AM EDT Telemedicine [facility] MED & PEDS [address] [place] [address] Levi Marion MD [address] [place] [address] documented as of this encounter Visit Diagnoses Diagnosis Type 2 diabetes mellitus without complication, without long-term current use of insulin ([facility]) documented in this encounter Additional Health Concerns Assessment Noted Time PHQ-9 Depression Total Score: 0 05/31/20 22 4:06 PM EST documented as of this encounter Care Teams Record Changer Assembler Relationship Specialty Start Date End Date Levi Marion MD [address] [place] [address] PCP - General Internal Medicine 02/22/20 documented as of this encounter
--- OUTSIDE RECORDS SUMMARY | 2024-12-25 15:09 | XMS_ITS | Data Portability ---
Author Organization [employer] [facility], [facility] Address [address] [place] [address] Care Team Providers Care Smutter Name Role Phone [facility] Referring Provider HIM CCA OTHER Assessment Encounter Date Assessment Date Assessment LastModified by Organization Details LastModified Time 11/05/2022 11/05/2022 I have reviewed and agree with the Assessment and Plan as documented by the Cast Associate. I provided real-time medical direction via phone for this encounter, and was available for additional phone based assistance as needed. Patient seen for foot erythema and pain c/w prior episodes of cellulitis. HAs also previously had gout flare in past. Avss and afebrile w/ no chills / rigors or rapid progression / streaking. Well appearing per report. Exam c/f early cellulitis vs gout flare. Plan for trial of PO abx (doxy) elevation and nsaids. close PCP follow up advised. Instructed to present to the ED for signs of worsening infection. pallfather Not available 11/05/2022 18:46:28 Plan of Treatment Reminders Order Date Submit Date Provider Last Modified By Organization Details Last Modified Time Details Appointments None recorded. Lab BMP, serum or plasma [address], [phone] 3 19:05:25 urinalysis, dipstick [address], [address] 3 19:05:47 BMP, serum or plasma 2022 023 alta allen [address], [address] 3 09:39:33 Referral None recorded. Procedures None recorded. Surgeries None recorded. Imaging None recorded. Medication Orders Lasix 20 mg tablet 2022 023 alta castillo89 [facility] #[id number], [address], [place], [phone], 3 12:29:00 Lasix 20 mg tablet 2022 023 [facility] #[id number], [address], [place], [id number], 3 12:30:26 doxycycline hyclate 100 mg capsule 2022 023 [facility] #[id number], [address], [place], [id number], 3 11:02:53 Patient TargetsNo targets recorded. Patient InstructionsNo instructions recorded. Reason for Referral None Reported. Results Created Date Observation Date Name Description Value Unit Range Abnormal Flag Note LastModifiedBy Organization Detail LastModifiedTime 12/16/1912/15/2022 BMP, serum or plasm a BUN 23 Not Available [facility] [address], [address] 12/15/2022 09:27:56 12/16/1912/15/2022 BMP, serum or plasm a CI- 98 Not Available [facility] [address], [address] 12/15/2022 09:27:56 12/16/1912/15/2022 BMP, serum or plasm a CRE 1.3 Not Available [facility] [address], [address] 12/15/2022 09:27:56 12/16/1912/15/2022 BMP, serum or plasm a GLU 104 Not Available [facility] [address], [address] 12/15/2022 09:27:56 12/16/19 23 12/15/2022 BMP, serum or plasm a K+ 3.7 Not Available [facility] [address], [address] 12/15/2022 09:27:56 12/16/19 23 12/15/2022 BMP, serum or plasm a Na+ 141 Not Available [facility] [address], [address] 12/15/2022 09:27:56 12/16/1912/15/2022 BMP, serum or plasm a tCO2 26 Not Available [facility] [address], [address] 12/15/2022 09:27:56 Result Notes None recorded. Medical Equipment None Reported. Allergies Allergen ID Allergen Name Allergen Category Reaction Reaction Severity Criticality Documentation Date Start Date Code Code System Note Provider Name and Address Organization Details Recorded Time 8015 Product containin g penicilli n (product) medicatio n Not available Not available Not available 04/10/2024 91266 8001 SNOMED Not Available [facility] - production 03:41:23 Medications Name Sig Start Date Stop Date Status Note LastModified by Organization Details LastModified Time fluconazole 100 mg tablet TAKE ONE TABLET BY MOUTH EVERY MORNING FOR 5 DAYS active Not Available Not Available No t Available metformin 500 mg tablet TAKE TWO TABLETS BY MOUTH WITH BREAKFAST AND WITH DINNER active Not Available Not Available No t Available doxycycline hyclate 100 mg capsule TAKE 1 CAPSULE BY MOUTH TWICE DAILY FOR 5 DAYS active Not Available Not Available No t Available atorvastatin 20 mg tablet TAKE ONE TABLET DAILY active Not Available Not Available No t Available clindamycin HCl 300 mg capsule TAKE TWO CAPSULES BY MOUTH 30 MINUTES before dental appointment active Not Available Not Available Not Available FreeStyle Lancets 28 gauge USE TO CHECK BLOOD SUGAR TWICE DAILY active Not Available Not Available No t Available lisinopril 20 mg tablet TAKE ONE TABLET BY MOUTH EVERY DAY active Not Available Not Available No t Available metoprolol succinate ER 100 mg tablet,exten ded release 24 hr TAKE ONE TABLET BY MOUTH EVERY DAY active Not Available Not Available No t Available sulfamethoxa zole 800 mg-trimethop rim 160 mg tablet TAKE ONE TABLET TWICE DAILY UNTIL FINISHED active Not Available Not Available No t Available OneTouch Ultra Test strips TEST BLOOD SUGAR THREE TIMES DAILY active Not Available Not Available Not Available lisinopril 30 mg tablet TAKE ONE TABLET DAILY active Not Available Not Available No t Available ammonium lactate 12 % topical cream APPLY TO BOTH FEET DAILY NEEDED FOR DRY SKIN active Not Available Not Available No t Available hydrochlorot hiazide 25 mg tablet TAKE ONE TABLET BY MOUTH TWICE DAILY active Not Available Not Available No t Available furosemide 20 mg tablet TAKE 1 TABLET BY MOUTH EVERY OTHER DAY NEEDED active Not Available Not Available No t Available lisinopril 40 mg tablet TAKE ONE TABLET EVERY MORNING active Not Available Not Available No t Available doxycycline hyclate 100 mg tablet TAKE ONE TABLET BY MOUTH TWICE DAILY FOR 10 DAYS. TAKE WITH GLASS OF WATER. DO NOT LIE DOWN FOR 30 MINUTES AFTER TAKING active Not Available Not Available No t Available glipizide 5 mg tablet TAKE ONE TABLET TWICE DAILY BEFORE MEALS active Not Available Not Available No t Available Ventolin HFA 90 mcg/actuatio n aerosol inhaler INHALE TWO PUFFS EVERY 4 HOURS NEEDED FOR WHEEZING active Not Available Not Available No t Available Nyamyc 100,000 unit/gram topical powder APPLY TO THE AFFECTED AREA(S) TWICE DAILY active Not Available Not Available Not Available FreeStyle [place] Lite kit TEST BLOOD SUGAR TWICE DAILY active Not Available Not Available No t Available OneTouch Ultra2 Meter TEST BLOOD SUGAR THREE TIMES DAILY active Not Available Not Available Not Available OneTouch Delica Plus Lancet 33 gauge TEST BLOOD SUGAR THREE TIMES DAILY active Not Available Not Available Not Available Tab-A-Sandra Multivitamin w-iron 18 mg-400 mcg tablet TAKE ONE TABLET EVERY MORNING active Not Available Not Available No t Available Tab-A-Sandra Multivitamin w-iron 15 mg iron-400 mcg tablet TAKE ONE TABLET EVERY MORNING active Not Available Not Available No t Available Vitals Date Recorded Body weight Respiratory rate Oxygen saturation Oxygen saturation in Arterial blood by Pulse oximetry Body temperature Heart rate Systolic And Diastolic Provider Name and Address Organization Details Last Updated DateTime 3 270443. 36 g 16 /min 96 % 96 % 98.4 [degF] 79 /min 134/80 mm[Hg] Not Available [facility] 3 10:59:54 Date Recorded Body weight Respiratory rate Heart rate Oxygen saturation Oxygen saturation in Arterial blood by Pulse oximetry Body temperature Body height Systolic And Diastolic Provider Name and Address Organization Details Last Updated DateTime 3 715332. 44 g 18 /min 67 /min 98 % 98 % 98.1 [degF] 187.96 cm 101/70 mm[Hg] Not Available [facility] 3 12:18:54 Date Recorded Oxygen saturation Oxygen saturation in Arterial blood by Pulse oximetry Body weight Body temperature Heart rate Respiratory rate Body temperature Heart rate Respiratory rate Body weight Oxygen saturation Oxygen saturation in Arterial blood by Pulse oximetry Provider Name and Address Organization Details Last Updated DateTime 97 % 97 % 662483. 4 g 98 [degF] 77 /min 16 /min 98 [degF] 77 /min 16 /min 722903. 4 g 97 % 97 % Not Available [facility] production 3 12:44:19 Date Recorded Systolic And Diastolic Systolic And Diastolic Provider Name and Address Organization Details Last Updated DateTime 12/10/2022 126/81 mm[Hg] 126/81 mm[Hg] Not Available [facility] - production 12/10/2022 12:44:19 Social History None recorded. Functional Status None recorded. Mental Status None recorded. Family History Nothing Reported. Medical History No medical history recorded. Past Encounters Encounter ID Performer Location Encounter Start Date Encounter Closed Date Diagnosis/Indication Diagnosis SNOMED-CT Code Diagnosis ICD10 Code Diagnosis Note [id number] Teodoro Pond MD [facility] [address] [place] [phone] 11/05/2022 10:59:45 11/05/2022 14:24:51 Cellulitis of right foot [id number] L03.115 [id number] Brooke Bassett MD [facility] [address] [place] [phone] 11/26/2022 12:18:41 11/27/2022 23:08:28 Pain in left foot [id number] 05842 M79.672 62 year old male with DM, being evaluated for L foot pain concerning for an infection. Patient reports having infections in his feet in the past, and that he is starting to feel signs of another one starting. He has been having pain along the bottom and tops of his feet, without trauma, fever or chills. Exam notable for normal vital signs, L foot without edema, erythema, but does have mild tenderness to palpation over metatarsal heads of foot. Presentati on suggestive of foot pain of unclear etiology, without overt signs of infection on today's assessment . Given patient's concerns about diabetic foot infections , urged to continue to monitor daily and call back for another evaluation if symptoms worsen. [id number] Dio Lyons MD [facility] [address] [place] [phone] 12/10/2022 11:59:04 12/13/2022 10:20:27 Bilateral lower limb edema [id number] R60.0 As noted, we were called to see this patient regarding concerns of bilateral edema with focal skin tenderness . Evaluation in the field was performed by my high school science tutor colleague, as noted above, I provided real-time direction and supervisio n for this visit. The evaluation revealed bilateral moderate edema without erythema, warmth, redness, and with a small focus of ttp on the lateral aspect of the R foot near the malleolus. Pt reports edema is relatively new. Not on diuretics. Denies dietary indiscreti on. Reports polyuria, primarily in AM, not so much throughout the day. No change in urine -- foamy, cloudy, etc. No new meds. No calf or thigh tenderness - this was described clearly by medic to me but is not noted specifical ly.No immobility , long sedentary travel, or limb injuries/s urgeriesHx diabetic foot infections and so was concernedN o infectious sx as notedNot hot in his home - AC is on. Impression :Bilateral edema of uncertain etiology. Ddx would include heat-relat ed vasodilati on, mild CHF/CKD-re lated fluid retention due to increased salt and fluid intake (dietary indiscreti on), CHF with other flare, new CKD/SAMANTHA (meds vs others), venous insufficie ncy, among others. AM polyuria suggests dependent edema, though this would not necessary distinguis h between the above. BMP shows a suggestion of hypovolemi a, with BUN:Cr of 18, and relatively high H/H. Plan:___ Primary care, consider__ _ Dispositio n: We discussed the diagnostic uncertaint y of home visits and the risk associated with this. In this case, the patient and I felt this to be an acceptable and reasonable amount of risk given the benefit of avoiding an ED visit. We discussed the need to seek care urgently/e mergently in the setting of any new or worsening serious symptoms, particular ly ___ ORWe discussed the situation and I recommende d referral to the emergency department . This was based on Health Concerns Section Related Observation LastModified by Organization Detai ls LastModified Time None Recorded Concern Status LastModified by Organization Details LastModified Time None Recorded Advance Directives Directive None Recorded Payers Insurance Date Sequence Insurance Name Policy Number Policy Montalvo Covered Member ID Montalvo Member ID Guarantor Name 12/02/2024 1 [facility] - DOS ON OR AFTER 2022 - DUAL ELIGIBLE - JAIL OPTIONS AND ONE CARE (MEDICARE REPLACEMENT/ADV ANTAGE - HMO) Michael Mehreen [id number] Michael Verde Notes Date Note Type Note Provider Name and Address Organization Details Recorded Time 11/05/2022 text/html HPI: Call to Michael eVrde, reports having right foot pain. Per pt pain is by the small pinky toe and top of ankle. Per pt having swelling and rash. Not warm to touch. Pt started having pain on Tuesday. Per pt denies any injury. Pt mild numbness. Pt advised of disposition, prefers [facility] to go out to home, declined in office visit. .................. .................. .................. .................. .................. .................. .................. ............... CRC Nursing Assessment: Comments: CRC RN DID NOT NEED FURTHER INFO NICOL .................. .................. .................. .................. .................. .................. .................. ............... Cast Associate Note From Diego Paigean: Pt CO R foot pn and swelling X2 days. Pt states he had a prior diabetic infection in his L foot about 2 weeks ago. Pt was treated with Batrim. Pt states Pn feels like a burning stabbing Pn. Pt denies any trauma, injury or bites to the area. Pt has been cleaning the area and keeping it elevated. Pt denies fevers, chest pn or SOB. Pos Edema, Neg Erythema. Skin temp feels different than L leg. Neg streaking or discharge. Educated Pt on red flags to watch for, and supportive care Cast Associate Allergies: Penicillin .................. .................. .................. .................. .................. .................. .................. ............... Disposition: Fulfilled Teodoro Pond MD [address] [place] [address],[address], [place], [phone] [employer] 11/05/2022 18:46:41 11/26/2022 text/html CRC Nursing Assessment: Reason For Request: Pt calling in regards of a diabetic foot infection. Since last night. Chief Complaints: Diabetes Related PMH: Diabetes, COPD/Asthma Allergies: Penicillin Pain Assessment: Level 7 out of 10 Comments: Signs of left foot infection front and left part of foot since last night. History for diabetes. Denies fever chills. No drainage. + pain to area. .................. .................. .................. .................. .................. .................. .................. ............... Cast Associate Note From Breanne Spring: Sent to a call for a pt with a foot wound. SC8 arrives on scene, pt is alert and oriented, airway is patent. Pt complains of left foot pain starting last night. Pt states he is prone to cellulitis in both feet with last infection on right foot treated with Doxycycline approx 3 weeks ago. Pt complains of pain on left foot plantar and dorsal starting with third digit spreading to 5th digit and going back to his heel. Pt states pain worsens with walking, and denies any recent fall or trauma. Pt denies headache, dizziness, cp, sob, n/v/d, abd pain, fever, or loc. BP:101/70, P:67, RR:18, SpO2:98% RA, T:98.1; Head: unremarkable; Lung sounds: clear bilaterally; Abdomen: soft, non-tender, no distention; Back: unremarkable; Left foot: slight edema noted, slightly warm to touch, no erythema or wound noted, (+)pedal pulse; Other extremities: unremarkable; [facility] consulted and pt is advised to take Tylenol for pain and continue monitoring extremity for further symptoms. Pt advised it would be best not to prescribe antibiotics at this time to avoid unnecessary exposure especially since he has had multiple recent rounds of antibiotics. Red flags discussed. Pt is frustrated he is not being prescribed antibiotics, but agrees to watch for worsening symptoms. Pt has no further questions. .................. .................. .................. .................. .................. .................. .................. ............... Disposition: Fulfilled Brooke Bassett MD [address] [facility],[address], [place], [phone], [place] [facility] - [employer] 11/26/2022 12:22:44 12/10/2022 text/html CRC Nursing Assessment: Chief Complaints: Diabetes Related, Pain PMH: Diabetes, COPD/Asthma Allergies: Penicillin Comments: Verified identity by Member c/o right left is swollen. Member was seen for left foot recently by elen. Member right foot is hot/ pink and cant put weight on it. Member has had cellulitis in the past. Member denies fever/ chills/ n/v/d Member has not been checking BS every day but does not feel it is low but will check it to make sure it is not high Verified identity by .................. .................. .................. .................. .................. .................. .................. ............... Cast Associate Note From Curry Paige: Pt CO swelling and tenderness in both feet. This has been going on for a few days. Pt has had diabetic infections in the past, but this is not the normal presentation. Pt states that his feet are tender, but not up into his legs. Pt denies SOB/Chest Pn/NVD/Fevers/abd Pn. Pt states he has noticed an increase in urination in the mornings, but not the rest of the day. Pt is able to ambulate with the help of a crutch. Pt stated that he has not had any change in his diet. Drank 3 - 4 beers on 12/06 no other ETOH intake. AOX4 , Pos pitting edema (+2/3), BGL 104, Pos TTP to lateral aspect of bi - lat feet , Lungs CTA, full mobility and ROM of feet. Increased Pn with walking. Pos capillary refill, Pos distal pulses. Pt was given 20mg lasix PO. Discussed with Pt and spouse about red flags to watch for and when to go to ED or call 911. educated Pt on supportive care. Pt and spouse understood all instructions Cast Associate Allergies: Penicillin .................. .................. .................. .................. .................. .................. .................. ............... Disposition: Fulfilled Dio Lyons MD [address] [facility],[address], [place], [address], SAR[facility] - [employer] 12/15/2022 09:39:50
--- OUTSIDE RECORDS SUMMARY | 2024-12-25 15:09 | XMS_ITS | Patient Health Record ---
Author Organization [facility] Address [address] [place] [address] Care Team Providers Care Ingot Buggy Operator Name Role Phone Phillip ryan, Levi Primary Care Prov ider Eloy Gay Jr Unavailable Allergies Allergen (clinical drug ingredient) Drug/Non Drug Allergy documented on EMR Reaction Allergy Type Onset Date Status Penicillin Unknown Drug Allergy Active Results Component Value Reference Range Notes Liver Fibrosis Pnl Reviewed date:04/27/2024 07:52:13 AM Interpretation: Performing Lab:[facility], [address] [place] [phone] Notes/Report: Liver Fibrosis Score 0.38 Liver Fibrosis [...] a>0.62 and a<=1.00 : A3 (severe activity) COO-Wflgs-3-Macroglobulin 257 106-279 mg/dL FIB-Haptoglobin 170 43-212 mg/dL FIB-Apolipoprotein A1 131 94-176 mg/dL FIB-Total Bilirubin 0.8 0.2-1.2 mg/dL FIB-GGT 10 3-70 U/L FIB-ALT 13 9-46 U/L Reference ID [id number] Footnote SEE NOTE The reliability of results is dependent on compliance with the preanalytical and analytical conditions recommended by [facility]. The tests have to be deferred for: [...] The performance characteristics have been determined by [facility]. It has not been cleared or approved by the U.S. Food and Drug Administration. Performance characteristics refer to the analytical performance of the test. [employer], the associated logo, [employer] and all associated [employer] lee are the registered trademarks of [employer]. All third green party lee - (R) and (TM) - are the property of their respective owners. (C) 1042-6890 [employer]. All rights reserved. THIS TEST WAS PERFORMED AT: [facility] [id number] [address] [place] [address] RORY GUPTA MD,PHD,ALICIA Complete Blood Count Auto Di ff Reviewed date:04/18/2024 10:31:46 PM Interpretation: Performing Lab:[facility], [address] [place] [phone] Notes/Report: White Blood Count 8.8 4.8-10.8 X10*3/uL Red Blood Count 5.31 4.60-5.80 X10*6/uL Hemoglobin 15.9 14.0-18.0 g/dl Hematocrit 47.7 42.0-52.0 % Mean Corpuscular Volume 89.8 80.0-98.0 fL Mean Corpuscular Hemoglobin 29.9 27.0-33.0 pg Mean Corpuscular HGB Conc 33.3 31.0-36.0 g/dl Red Cell Distribution Width 12.6 11.0-16.0 % Platelet Count 265 160-400 X10*3/uL Mean Platelet Volume 10.5 9.4-12.4 fL Neutrophils Percent Auto 70.4 45-73 % Imm Gran Pct Auto 0.2 0.0-0.4 % Lymphocytes Percent Auto 17.8 20-40 % Monocytes Percent Auto 6.2 2-11 % Eosinophils Percent Auto 3.9 0-4 % Basophils Percent Auto 1.5 0-2 % NRBC Pct Auto 0.0 0.0-0.2 /100WBC Neutrophils Absolute Auto 6.2 2.0-8.3 x10*3/u L Imm Gran Abs Auto 0.02 0.00-0.03 X10*3/uL Lymphocytes Absolute Auto 1.6 1.2-4.9 X10*3/u L Monocytes Absolute Auto 0.6 0.1-1.2 X10*3/uL Eosinophils Absolute Auto 0.3 0.0-0.4 X10*3/u L Basophils Absolute Auto 0.1 0.0-0.2 X10*3/uL NRBC Abs Auto 0.000 0.0-0.012 X10*3/uL Liver Panel Reviewed date:04/18/2024 10:31:56 PM Interpretation: Performing Lab:[facility], [address] [place] [phone] Notes/Report: Bilirubin Total 1.2 0.0-1.0 mg/dL Bilirubin Direct 0.5 0.0-0.5 mg/dL Aspartate Amino Transferase 25 5-37 U/L Alanine Aminotransferase 18 0-40 U/L Total Protein 7.5 6.5-8.0 g/dL Albumin Level 4.4 3.5-5.0 g/dL Alkaline Phosphatase 72 39-117 U/L Hep C Viral Load Reviewed date:04/26/2024 08:26:10 AM Interpretation: Performing Lab:[facility], [address] [place] [phone] Notes/Report: HepC Viral Load <15 NOT DETECTED NOT DETECTED IU/mL HCV Log PCR <1.18 NOT DETECTED NOT DETECTED Log IU/mL For additional information, please refer to http://education.[employer]/faq/FAQ22v 1 (This link is being provided for informational/ educational purposes only.) THIS TEST WAS PERFORMED AT: [facility] [address] [place] [phone] AKHIL TORRES MD Reason For Referral No Information Medications Medication SIG (Take, Route, Frequency, Duration) Notes Start Date End Date Status Metoprolol Succinate ER 100 MG Oral for 30 Active Lisinopril 40 MG 1 tablet Orally Once a day Active Atorvastatin Calcium 20 MG TAKE 1 TABLET BY MOUTH 1 TIME Oral for 30 Active Jardiance 25 MG Oral for 90 Ac tive Famotidine 40 MG TAKE ONE TABLET BY M OUTH AT BEDTIME Oral for 90 Active Immunizations Vaccine Route Administration Date Status Comme nts Influenza Unknown 01/11/2021 Administered Influenza Unknown 04/05/2023 Administered Influenza Unknown 03/27/2024 Administered Social History Tobacco Use: Social History Observation Description Date Details (start date - stop date) Never Smoker NA - NA Tobacco Use/Smoking Question Answer Notes Patient is a nonsmoker Alcohol Screen Question Answer Notes Did you have a drink containing alcohol in the p ast year? No Points 0 Interpretation Negative Section Notes: has a few beers a week has a few beers a week has a few beers a week Problems Problem Type SNOMED Code ICD Code Onset Dates Problem Status W/U Status Risk Notes Problem 506453388 Colon cancer screening (Z12.11) Active confirmed Problem 081698507 Abdominal bloating (R14.0) Active confirmed Problem 79971152 Change in bowel habits (R19.4) Active confirmed Problem 069585832 Eosinophilic esophagitis (K20.0) Active confirmed Problem 870383949 Fatty liver (K76.0) Active confirmed Problem 331074729 FH: colon cancer (Z80.0) Active confirmed Problem 37221651 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 [address] [place] [phone] 04/18/2024 Eloy Pena Jr Hepatitis C virus infection with hepatic coma, unspecified chronicity B19.21 ; Fatty liver K76.0 ; Change in bowel habits R19.4 and Eosinophilic esophagitis K20.0 [facility] [address] [place] [phone] 04/27/2024 Eloy Pena Jr Assessments Encounter Date Diagnosis (ICD Code) Assessment Notes Treatment Notes Treatment Clinical Notes Section Notes 04/18/2024 Fatty liver (ICD-10 - K76.0) At this time, h e appears stable. He will have further laboratory testing for followup on his liver issues. He will continue famotidine for his reflux and eosinophilic esophagitis. Followup in one year. 04/18/2024 Hepatitis C virus infection with hepatic [...] Followup in one year. Plan Of Treatment Pending Test Test Name Order Date LIVER PROFILE 04/18/2024 CBC w/o DIFF 04/18/2024 STOOL WBC 10/17/2023 HEPATITIS C VIRAL LOAD 04/18/2024 OVA & PARASITES (O&P) 10/17/2023 GI PANEL 10/17/2023 Future Test Test Name Order Date COLONOSCOPY 06/03/2021 Next Appt Details Provider Name:Eloyfidencio vigil , 04/15/2025 09:00:00 AM, [address] [place] [address], [address], [place], [address], Insurance Providers Payer Name Payer Address Payer Phone Subscriber Number Group Number Insured Name Patient Relationship to Insured Coverage Start Date Coverage End Date [facility] [address] Attn Claims [place]RY[place] L[place] [id number] [place] Self - patient is the insured MEDICARE OF [place] [address] [place] [address] [id number] [place] Self - patient is the insured Medical (General) History Medical History History ICD Code type II diabetes hypertension Elevated cholesterol SOPHY, not requiring CPAP since tonsillect alon Coronary Artery Disease Surgical History Surgery Date(Month/Year) left acl left total knee replacement right total knee replacement tonsillectomy
--- OUTSIDE RECORDS SUMMARY | 2024-12-25 15:09 | XMS_ITS | Clinical Summary ---
Author Organization [facility] Address [address] [place] [address] Care Team Providers Care Platform Mill Supervisor Name Role Phone Jose C Flores MD Primary Care Provider [phone] Source Comments PLEASE NOTE, if this patient is a minor, it may be UNLAWFUL to discuss sensitive information that is contained in these records (such as FAMILY PLANNING, MENTAL HEALTH or SUBSTANCE ABUSE) with the minor patient's parent or other person without the patient's specific authorization.[facility] Allergies Active Allergy Reactions Criticality Noted Date Comments Penicillins Hives 08/14/2013 Medications PROAIR HFA 90 mcg/actuation inhaler 0 07/26/2015 Active hydrochlorothia zide (HYDRODIURIL) 25 mg tablet Take 1 Tab by mouth once daily. 30 Tab 2 02/17/2016 Active atenolol (TENORMIN) 25 mg tablet TAKE 1 TABLET BY MOUTH EVERY DAY 30 Tab 0 03/23/2016 Active lisinopril (PRINIVIL,ZESTR IL) 5 mg tablet TAKE 1 TABLET BY MOUTH EVERY DAY 30 Tab 0 03/23/2016 Active montelukast (SINGULAIR) 10 mg tablet TAKE 1 TABLET BY MOUTH EVERY NIGHT AT BEDTIME 30 Tab 12/28/2016 Active Active Problems Problem Noted Date Diagnosed Date H/O colonoscopy with polypectomy 03/03/2015 Overview (03/03/2015): Done 02/21/2015 Medium internal hemorrhoid. A single sessile polyp benign 4 mm ascending colon removed Herniation of intervertebral disc between L4 and L5 02/22/2014 Overview (02/22/2014): Recent MRI showed L4-L5 right central disc herniation with extruded fragment extending into right L5 nerve root lateral recess with nerve root compression. Pt will be referred to a neuro surgeon Obesity (BMI 30.0-34.9) 11/27/2013 Hypertension 08/14/2013 Asthma, mild intermittent (HHS-HCC) 08/14/2013 Overview (08/14/2013): pts sees Dr Sargent Seasonal allergies 08/14/2013 Sleep apnea, obstructive 08/14/2013 Overview (08/14/2013): On CPAP H/O colonoscopy 08/14/2013 Overview (03/14/2015): Done 02/21/2015 4-5 mm polyp removed in ascending colon. Internal hemorrhoids/. Social History Tobacco Use Types Packs/Day Years Used Date Smoking Tobacco: Never Alcohol Use Standard Drinks/Week Comments Yes 0 (1 standard drink = 0.6 oz pur e alcohol) Social Connections Answer Date Recorded Social Connections and Isolation 0 07/08/2022 Financial Resource Strain Answer Date R ecorded Financial Resource Strain 0 2022 Stress Answer Date Recorded Stress 0 07/08/2022 Physical Activity Answer Date Recorded Physical Activity 0 07/08/2022 Food Insecurity Answer Date Recorded Food 0 07/08/2022 Transportation Needs Answer Date Record ed Transportation 0 07/08/2022 Housing Stability Answer Date Recorded Housing 0 07/08/2022 Safety and Environment Answer Date Zackary rded Safety 0 07/08/2022 Utilities Answer Date Recorded Utilities 0 07/08/2022 Employment Answer Date Recorded Employment 0 07/08/2022 Sex and Gender Information Value Date Recorded Sex Assigned at Not on file Legal Sex Male 11:36 AM PDT Gender Identity Not on file Sexual Orientation Not on file Last Filed Vital Signs Vital Sign Reading Time Taken Comments Blood Pressure 110/78 07/29/2015 9:17 AM EST Pulse 80 07/29/2015 9:17 AM EST Temperature 35.9 C (96.7 F) 07/29/2015 9:17 AM EST Respiratory Rate 18 07/29/2015 9:17 AM EST Oxygen Saturation - - Inhaled Oxygen Concentration - - Weight 163.3 kg (360 lb) 07/29/2015 9:17 AM EST Height 188 cm (6' 2 ) 07/29/2015 9:17 AM EST Body Mass Index 46.22 07/29/2015 9:17 AM EST Plan of Treatment Health Maintenance Due Date Last Done Comments Anxiety Screening 1960 Tobacco Screening 1960 Syphilis Screening 11/23/1974 Medicare Annual Wellness Visit 1978 CT Colonography 2005 Fecal DNA 2005 Flexible Sigmoidoscopy 2005 Imm-Zoster, Recombinant (1 of 2) 2010 FIT/gFOBT 02/25/2011 02/25/2010 (Lenka ged by Outside Provider) Annual Wellness (Adult): Indicated (All Coverage) 04/01/2015 04/01/2014 Hypertension Screening (#1) 07/28/2016 Colonoscopy 03/31/2017 03/31/2007 (Lenka ged by Outside Provider) Colorectal Cancer Screening 03/31/2017 Ihe-IVOTX-11 () 02/12/2024 022 Alcohol and Drug Screen 06/13/2024 07/29/2015 Depression Annual Screen 06/13/2024 Diabetes Screening 03/25/2026 03/25/2023, 0 03/11/2023, 03/11/2023, Additional history exists Lipid Screening 03/11/2028 03/11/2023, 08/12, 07/19/2014, Additional history exists HIV Screening Completed 11/03/2021 Imm-DTaP/Tdap/Td Discontinued 01/22/2022 Imm-Pneumococcal 50+ Discontinued 01/22/2022 Hepatitis C Screening Completed 09/03/2022 Imm-Influenza Discontinued 02/22/2023, 11/0 06/2021, 03/03/2021, Additional history exists Procedures Procedure Name Priority Date/Time Associated Diagnosis Comments COMPREHENSIVE METABOLIC PANEL Routine 01/21/2015 9:05 AM EDT Essential hypertension LIPID PANEL Routine 07/19/2014 12:00 AM EST Obesity (BMI 30.0-34.9) from Last 3 Months or Most Recently Relevant to Health Maintenance Results * Comp metabolite (01/21/2015 9:05 AM EDT) [facility] Signature GLUCOSE 98 70 - 100 mg/dL [facility] Comment:Reference range appl icable to fasting specimens only BUN 16 5 - 25 mg/dL [facility] CREAT 1.02 0.7 - 1.3 mg/dL [facility] GLOMERULAR FILTRATION RATE > 60 [facility] Comment: If patient is -Gambian, multiply result by 1.21 Chronic Kidney Disease: < 60 ml/min/1.73 square meters Kidney Failure: < 15 ml/min/1.73 square meters SODIUM 141 133 - 145 mEq/L [facility] POTASSIUM 4.3 3.5 - 5.5 mEq/L [facility] CHLORIDE 103 96 - 110 mEq/L [facility] CO2 32 21 - 32 mEq/L [facility] ANION GAP 6 3 - 11 [facility] CALCIUM 9.2 8.5 - 10.5 mg/dL [facility] TOTAL PROTEIN 7.2 6.0 - 8.0 G/dL [facility] ALBUMIN 4.4 3.2 - 5.0 G/dL [facility] BILI, TOTAL 0.7 0.0 - 1.4 mg/dL [facility] SGOT 33 10 - 42 U/L [facility] SGPT 47 10 - 60 U/L [facility] ALK PHOS 69 42 - 121 U/L [facility] Blood specimen (specimen) Blood / Unknown 01/21/2015 9:05 AM EDT 01/21/2015 9:22 AM EDT Narrative [facility] - 01/21/2015 1:07 PM EDT [employer] [address] [place] [address] PT ID [id number] ORD# [id number] us Jose C Flores MD LAB - BLOOD DRAW Final Result [facility] [address] [place] [address], * (ABNORMAL) lipid (07/19/2014 12:00 AM EST) CHOLESTEROL 179 0 - 200 mg/dL [facility] TRIGLYCERIDES 86 0 - 150 mg/dL [facility] HDL CHOLESTEROL 55 >40 mg/dL [facility] LDL CALCULATED 107(H) 0 - 100 mg/dL [facility] TC-HDLC RATIO 3.3 0 - 4.4 mg/dL [facility] Blood specimen (specimen) Blood / Unknown 07/19/2014 07/19/2014 4:46 PM EST Narrative [facility] - 07/19/2014 6:35 PM EST [facility] [address] [place] [address] PT ID [id number] ORD# [id number] us Jose C Flores MD LAB - BLOOD DRAW Edited Result - Final [facility] [address] [place] [address], [place] [phone] from Last 3 Months or Most Recently Relevant to Health Maintenance [place] [facility] [employer] Care Teams Platform Mill Supervisor Relationship Specialty Start Date End Date Jose C Flores MD [address] [place] [address] PCP - General Internal Medicine 08/14/13
== END 2024-12-25 15:15 | disposition home or self-care (01) ==
LOC: HO.HCS 13:47
PROVIDERS: PCP Internal Medicine; Visit Provider Nurse Practitioner Family
DX: I25.10 Atherosclerotic heart disease of native coronary artery without angina pectoris (principal); Z01.810 Encounter for preprocedural cardiovascular examination; M79.89 Other specified soft tissue disorders; I10 Essential (primary) hypertension; E11.9 Type 2 diabetes mellitus without complications; E78.00 Pure hypercholesterolemia, unspecified; G47.33 Obstructive sleep apnea (adult) (pediatric); R05.9 Cough, unspecified
CPT/HCPCS: 93010; 99214; G2211

== ENCOUNTER → 2024-12-25 13:46 | Outpatient (BNVA) | payer OTHER, SELFPAY | PROVIDERS: PCP Internal Medicine; Visit Provider Nurse Practitioner Family | DX: Z01.810 Encounter for preprocedural cardiovascular examination (principal); I25.10 Atherosclerotic heart disease of native coronary artery without angina pectoris; M79.89 Other specified soft tissue disorders; I10 Essential (primary) hypertension; E11.9 Type 2 diabetes mellitus without complications; E78.00 Pure hypercholesterolemia, unspecified; G47.33 Obstructive sleep apnea (adult) (pediatric); R05.9 Cough, unspecified | CPT/HCPCS: 93005; 99212 ==